=== PATIENT | female | born 1950 | race Caucasian/White ===

== ENCOUNTER 2018-07-16 09:32 | Emergency (ER) | payer MEDICARE, OTHER, SELFPAY ==
[2018-07-16 09:52] VITALS: BP 248/105; PULSE 62; RESP 22; TEMP 36.3; O2SAT 100
[2018-07-16 10:31] VITALS: BP 228/82; PULSE 56; RESP 22; O2SAT 100
[2018-07-16 10:33] VITALS: BP 207/83; PULSE 55
--- NOTE | 2018-07-16 10:34 | ED.GENADULT ---
HPI - General Adult General Chief complaint: Hypertension Stated complaint: HIGH BLOOD PRESSUE, FEELING TERRIBLE Time Seen by Provider: 07/16/18 09:59 Source: patient Mode of arrival: ambulatory Limitations: no limitations History of Present Illness HPI narrative: Patient is a 68-year-old female with a history of hypertension currently on lisinopril and atenolol who did not take her blood pressure medications this morning here for evaluation of high blood pressure. Patient states she was scheduled for cataract surgery yesterday. When she went in to have that surgery performed they took her blood pressure and she states that the systolic blood pressure was in the 240s to 260s. She states she did take her blood pressure medication yesterday. They did not perform the procedure because of this. She was asymptomatic. She did not come in to be evaluated. She states that today she woke up generally not feeling very well. She went to go take her blood pressure and the systolic blood pressure was in the 240s. She did not take her blood pressure medications this morning. She denies any chest pain or vision changes or headaches or shortness of breath or lower extremity swelling. She came into the emergency department for evaluation. Related Data Home Medications Medication Instructions Recorded Confirmed PreserVision AREDS 2 tab PO DAILY 07/16/18 07/16/18 aspirin [Aspir-Low] 81 mg PO DAILY 07/16/18 07/16/18 atenolol 100 mg PO DAILY 07/16/18 07/16/18 lisinopril 20 mg PO DAILY 07/16/18 07/16/18 ofloxacin 1 drp OPHTHALMIC (EYE) DIRECTED 07/16/18 07/16/18 prednisolone acetate 1 drp OPHTHALMIC (EYE) DIRECTED 07/16/18 07/16/18 Allergies Allergy/AdvReac Type Severity Reaction Status Date / Time Penicillins [PENICILLINS] Allergy Intermediate Verified 07/16/18 10:50 Review of Systems Constitutional Denies fever(s) and Denies headache(s) Eyes Denies blurry vision and Denies diplopia ENT Ears, Nose, Mouth, and Throat: Denies vertigo, Denies dizziness and Denies headache(s) Cardiovascular Denies chest pain and Denies dyspnea Respiratory Denies dyspnea Gastrointestinal Gastrointestinal: Denies abdominal pain, Denies nausea and Denies vomiting Musculoskeletal Denies myalgias and Denies arthralgias Integumentary/Breasts Denies rash Neurologic Denies behavioral changes, Denies vertigo, Denies dizziness and Denies headache(s) Psychiatric Reports anxiety and Denies behavioral changes Hematologic/Lymphatic Comments: Not on anticoagulation [facility] Medical History Hypertension (Acute) Surgical History No pertinent past surgical history (Acute) Social History Smoking Status: Never smoker Exam Initial Vital Signs Initial Vital Signs: Vital Signs Temperature 97.3 F L 07/16/18 09:52 Pulse Rate 62 07/16/18 09:52 Respiratory Rate 22 07/16/18 09:52 Blood Pressure 248/105 H 07/16/18 09:52 Pulse Oximetry 100 07/16/18 09:52 Const General: cooperative, healthy appearing, comfortable, well developed, well groomed and No acute distress Orientation: alert, awake and oriented x3 HENMT Head: normal to inspection and normocephalic Resp Effort & Inspection: normal respiratory effort Auscultation: clear to auscultation bilaterally Cardio Rate: regular rate Pulses: radial pulses present GI Inspection: non-distended Palpation: soft, No firm and No tender Skin Lesions: no lesions Rashes: no rashes Neuro General: alert, awake and oriented x3 Cognition: normal cognition Speech: speech normal Extrem General: normal to inspection, capillary refill normal and No edema Psych Appearance: grossly normal and well kempt Course Orders Ordered: Discontinued Medications Atenolol (Tenormin) 100 mg PO NOW ONE Stop: 07/16/18 10:46 Last Admin: 07/16/18 10:52 Dose: 100 mg Lisinopril (Zestril) 20 mg PO NOW ONE Stop: 07/16/18 10:46 Last Admin: 07/16/18 10:51 Dose: 20 mg Vital Signs - 8 hr 07/16/18 12:00 Pulse Rate 48 L Respiratory Rate 20 Blood Pressure [Right Arm] 174/99 H Pulse Oximetry 98 Medical Decision Making Lab Data Urine Dip Bedside Urine Glucose Negative Bedside Urine Bilirubin - Negative Bedside Urine Ketone - Negative Urine Specific [place] 1.015 Bedside Urine Occult Blood - Negative Bedside Urine pH 6.5 Bedside Urine Protein - Negative Bedside Urine Urobilinogen - Negative Bedside Urine Nitrite - Negative Bedside Urine Leukocytes - Negative Esterase Point of care testing: Urine Dip Bedside Urine Glucose Negative Bedside Urine Bilirubin - Negative Bedside Urine Ketone - Negative Urine Specific [place] 1.015 Bedside Urine Occult Blood - Negative Bedside Urine pH 6.5 Bedside Urine Protein - Negative Bedside Urine Urobilinogen - Negative Bedside Urine Nitrite - Negative Bedside Urine Leukocytes - Negative Esterase MDM Narrative Medical decision making narrative: Patient was asymptomatic. She was given her blood pressure medications here in the emergency department and was placed in a quiet room. Her blood pressure did come down. Given her lack of symptoms will hold on further workup for now. Will hold on changing any of her medications for now. We did discuss the importance of taking her blood pressure at home. We did discuss the importance of her continuing her blood pressure medications at home. She was given return precautions. Informed her that she needed to contact her primary care doctor for follow-up. She expressed understanding and agreement with plan. Discharge Plan Departure Patient Disposition: Home Clinical Impression: Hypertension Discharge Date/Time: 07/16/18 12:29 Interventions: ED Discharge Assessment Last Done: 07/16/18 12:28 Instructions: DI for High Blood Pressure Activity Restrictions/Additional Instructions: recommend you continue with her blood pressure medications. Take your blood pressure at home like we discussed. Call your primary care doctor for a follow-up. Return to the emergency department for any new or worsening symptoms. Prescriptions: No Action ofloxacin 0.3 % drops 1 drp ophthalmic (eye) DIRECTED RF: 0 atenolol 100 mg tablet 100 mg PO DAILY RF: 0 lisinopril 20 mg tablet 20 mg PO DAILY RF: 0 prednisolone acetate 1 % drops,suspension 1 drp ophthalmic (eye) DIRECTED RF: 0 aspirin [Aspir-Low] 81 mg Tablet,Delayed Release (Dr/Ec) 81 mg PO DAILY RF: 0 PreserVision AREDS 2 tab PO DAILY RF: 0
[2018-07-16 10:51] VITALS: BP 207/83; PULSE 63
[2018-07-16] MEDS: LISINOPRIL 20 MG TABLET PO (10:51)
[2018-07-16] MEDS: ATENOLOL 50 MG TABLET 100 MG PO (10:52)
[2018-07-16 11:20] VITALS: BP 197/106; PULSE 60; RESP 18; O2SAT 98
[2018-07-16 12:00] VITALS: BP 174/99; PULSE 48; RESP 20; O2SAT 98
== END 2018-07-16 12:29 | disposition home or self-care (01) ==
PROVIDERS: Emergency Provider Emergency Medicine; PCP Family Medicine
DX: I10 Essential (primary) hypertension (principal)
CPT/HCPCS: 36591; 81003; 93041; 99283

== ENCOUNTER 2018-11-30 07:15 | Emergency (ER) | payer MEDICARE, OTHER, SELFPAY ==
[2018-11-30 07:21] VITALS: BP 182/75; PULSE 58; RESP 20; TEMP 36.9; O2SAT 100; BMI 37.2
--- NOTE | 2018-11-30 07:37 | PC.NURSE ---
Pt reports she has been dizzy for about 20 minutes prior to arrival, denies pain. Pt is tearful and appears anxious, states that she has been having increased stress due to the loss of her daughter.
[2018-11-30 07:44] VITALS: BP 166/77; PULSE 53; RESP 15; O2SAT 100
--- NOTE | 2018-11-30 07:53 | ED_ITS ---
HPI - Dizziness General Chief Complaint: Dizziness Stated Complaint: Dizzy Time Seen by Provider: 11/30/18 07:50 Source: patient Mode of arrival: ambulatory Limitations: no limitations History of Present Illness HPI Narrative: This is a 68-year-old female comes to the emergency department complaining lightheadedness. Patient states that she has been grieving for her daughter who 3 months ago, she has also been under stress her son is returning to court in a week to try to gain custody of his daughter and he has not completed any of the tasks required for this. She states that she has also been going through the grieving process and at times has been very difficult. Patient states today she had been eating or drinking much over the last 24 hours. She states she has been sort of losing weight somewhat purposely. She states she had some yogurt and a little bit of fruit and water yesterday. She had not eaten today. She has been tired and not sleeping well. She states she ran to the store to pick something up and when she got back in her car felt lightheaded for about 5-10 minutes. She states she has had 1 episode before. This was remotely. She denies any chest pain, no shortness of breath, no headache, no nausea, no vomiting, no other GI or urinary symptoms. Patient states that she thinks most of this is related to grief but she was not sure so she came to the ER. She does have counseling she has been talking with her channel machine operator as well as with a grief counseling group. Related Data Home Medications Medication Instructions Recorded Confirmed PreserVision AREDS 2 tab PO DAILY 07/16/18 07/16/18 aspirin [Aspir-Low] 81 mg PO DAILY 07/16/18 07/16/18 atenolol 100 mg PO DAILY 07/16/18 07/16/18 lisinopril 20 mg PO DAILY 07/16/18 07/16/18 ofloxacin 1 drp OPHTHALMIC (EYE) DIRECTED 07/16/18 07/16/18 prednisolone acetate 1 drp OPHTHALMIC (EYE) DIRECTED 07/16/18 07/16/18 Allergies Allergy/AdvReac Type Severity Reaction Status Date / Time Penicillins [PENICILLINS] Allergy Intermediate Verified 11/30/18 07:21 Review of Systems Review of Systems ROS Unobtainable: All systems reviewed & are unremarkable except as noted in HPI and below Constitutional Denies chills, Denies fever(s), Denies increased appetite, Denies lethargy, Reports poor appetite and Denies weakness ENT Ears, Nose, Mouth, and Throat: Denies vertigo, Denies dizziness and Denies nasal congestion Cardiovascular Denies chest pain, Denies syncope, Denies rapid heart rate, Denies edema, Denies irregular heart rhythm, Reports lightheadedness, Denies palpitations, Denies dyspnea, Denies dyspnea on exertion and Denies orthopnea Respiratory Denies chest congestion, Denies cough, Denies excessive phlegm production, Denies dyspnea and Denies dyspnea on exertion Gastrointestinal Gastrointestinal: Denies abdominal pain, Denies change in bowel habits, Denies constipation, Denies diarrhea, Denies nausea and Denies vomiting Genitourinary Denies hematuria, Denies dysuria, Denies flank pain, Denies urinary incontinence and Denies urinary urgency Integumentary/Breasts Denies rash Neurologic Reports as per HPI, Denies vertigo, Denies dizziness, Denies syncope and Denies weakness Endocrine Denies palpitations PFSH Medical History Hypertension (Acute) Surgical History (Updated 07/16/18 @ 19:35 by Arturo Laura DO) No pertinent past surgical history (Acute) Social History Smoking Status: Never smoker Social History Smoking Status: Never smoker Exam Narrative Exam Narrative: GEN: well nourished, well appearing female, alert and oriented x 3, patient appears to be in mild distress. Patient little anxious. HEENT: Atraumatic, pupils are equal round reactive to light, extraocular movements are intact, nares are clear, TMs are clear with no fluid. Throat is clear without any exudates, erythema, tonsillar enlargement or uvular deviation HEART: Regular rate and rhythm without murmur, clicks, rubs. LUNGS:Lungs clear to auscultation, no wheezes, rales, crackles, chest moves symmetrically ABD:bowel sounds normal, soft, non-tender, no guarding, rebound, rigidity, no masses noted, no hepatosplenomegaly :No CVA tenderness MSCL: Non-tender, no muscle atrophy, muscles strength 5/5 upper and lower extremities, full range of motion, normal gait NEURO:CN 2-12 intact, sensation normal PSYCH: Grieving, anxious, denies any suicidal homicidal ideation or intent. Initial Vital Signs Initial Vital Signs: Vital Signs Temperature 98.4 F 11/30/18 07:21 Pulse Rate 58 L 11/30/18 07:21 Respiratory Rate 20 11/30/18 07:21 Blood Pressure 182/75 H 11/30/18 07:21 Pulse Oximetry 100 11/30/18 07:21 Course Orders Ordered: ED Orders 11/30/18 07:25 Complete Blood Count AUTO DIFF Stat Comprehensive Metabolic Panel Stat Troponin I Stat 11/30/18 08:10 XR chest 1V Stat Vital Signs - 8 hr 11/30/18 07:21 11/30/18 07:44 11/30/18 08:30 Temperature 98.4 F Pulse Rate 58 L 53 L 50 L Respiratory Rate 20 15 13 Blood Pressure 182/75 H Blood Pressure [Left Arm] 166/77 H 132/81 Pulse Oximetry 100 100 99 MDM - Dizziness Lab Data Attestation: I reviewed the patient's lab results. Result diagrams: 11/30/18 07:25 11/30/18 07:25 Lab Results 11/30/18 11/30/18 Range/Units 07:25 07:25 WBC 6.0 (4.5-11.0) X10^3/uL RBC 5.45 H (4.0-5.2) X10^6/uL Hgb 15.6 (12.0-16.0) g/dL Hct 46.7 H (36-46) % MCV 85.7 (80-100) fL MCH 28.7 (26-34) PG MCHC 33.5 (30-36) % RDW 15.4 H (11.6-14.8) % Plt Count 239 (150-400) X10^3/uL Neut % (Auto) 64.8 (50-75) % Lymph % (Auto) 27.3 (25-40) % [place] % (Auto) 5.4 (3-14) % Eos % (Auto) 2.0 (2-4) % Baso % (Auto) 0.5 (0-2) % Neut # (Auto) 3900 (7446-3677) /uL Lymph # (Auto) 1600 (9869-2494) /uL [place] # (Auto) 300 (0-900) /uL Eos # (Auto) 100 (0-450) /uL Baso # (Auto) 0 (0-100) /uL Sodium 140 (137-145) mmol/L Potassium 3.8 (3.4-5.1) mmol/L Chloride 103 (98-107) mmol/L Carbon Dioxide 28 (22-32) mmol/L BUN 11 (7-17) mg/dL Creatinine 0.70 (0.52-1.04) mg/dL Estimated GFR > 60.0 (>60) mL/min BUN/Creatinine Ratio 15.7 (6-22) Glucose 134 H (80-110) mg/dL Calcium 9.9 (8.4-10.2) mg/dL Total Bilirubin 1.4 H (0.2-1.3) mg/dL AST 27 (14-36) IU/L ALT 27 (9-52) IU/L Alkaline Phosphatase 110 (38-126) U/L Troponin I < 0.012 (0.01-0.034) ng/mL Total Protein 8.0 (6.3-8.2) g/dL Albumin 4.5 (3.5-5.0) g/dL Globulin 3.5 (1.7-4.1) g/dL Albumin/Globulin Ratio 1.3 (1.0-2.8) Urine Dip Bedside Urine Glucose Negative Bedside Urine Bilirubin - Negative Bedside Urine Ketone - Negative Urine Specific [place] 1.015 Bedside Urine Occult Blood - Negative Bedside Urine pH 6.5 Bedside Urine Protein - Negative Bedside Urine Urobilinogen - Negative Bedside Urine Nitrite - Negative Bedside Urine Leukocytes - Negative Esterase Imaging Data Chest x-ray: Radiologist's impression: [address] [id number] XRay Report Signed Patient: Susan Gutierrez LMR#: [id number] : 2Acct:[id number] Age/Sex: 68 / FDate of Service: 11/30/18 Loc: ED Accession Number: [id number] Procedure: XR chest 1V Ordering Provider: Lorin Weston D.O. PROCEDURE: XR CHEST 1V INDICATIONS: lightheadedness TECHNIQUE: One view of the chest was acquired. COMPARISON: [facility], , CHEST 1 VIEW, 04/12/2017, 10:19. FINDINGS: Surgical changes and devices: None. Lungs and pleura: Lungs are clear. No pleural effusions or pneumothorax. Mediastinum: Mediastinal contours appear normal. Heart size is normal. Bones and chest wall: No suspicious bony lesions. Overlying soft tissues appear unremarkable. IMPRESSION: No acute process. Dictated by: Robin Zepeda M.D. on 11/30/2018 at 8:26 Approved by: Robin Zepeda M.D. on 11/30/2018 at 8:26 ECG Data Attestation: I personally reviewed and interpreted this ECG as follows: Prior ECG tracings: available for review Interpretation: Sinus bradycardia, rate of 53, P are 184 QRS of 106 and QTC of 392. Patient has some nonspecific ST change, EKG appears similar to 04/12/2017. MDM Narrative Medical decision making narrative: Patient's lab work does not show any major abnormalities of than elevated bilirubin, patient's bilirubin was elevated in t he past. Troponin is normal, EKG does not show any acute findings. Chest x-ray is negative. patient's physical exam is benign. Patient had a long discussion she has excellent support socially from her channel machine operator as well as increasing group which she is finding very helpful. She has a pretty positive outlook and states that she is not feeling that her grief is overwhelming or that she is a danger t o herself or others. Discussed that were not finding any other medical causes of her discomfort today. She is feeling much better able to ambulate without issue and we discussed to make sure she is eating and drinking and trying to get as much sleep as possible. Discharge Plan Departure Patient Disposition: Home Clinical Impression: Dizziness Discharge Date/Time: 11/30/18 09:28 Interventions: ED Discharge Assessment Last Done: 11/30/18 09:27 Instructions: DI for Dizziness-Nonvertigo Activity Restrictions/Additional Instructions: Follow-up with your physician in the next to 3 days if you have any recurrent symptoms. Continue home medications as prescribed. Make sure that you are taking care of yourself and eating and drinking plenty. Return to the emergency department for worsening symptoms, passing out, fevers good 100.4 F, sudden severe headaches, new chest pain, shortness of breath, persistent vomiting, black or bloody stools or other new or concerning symptoms. Prescriptions: No Action ofloxacin 0.3 % drops 1 drp ophthalmic (eye) DIRECTED RF: 0 atenolol 100 mg tablet 100 mg PO DAILY RF: 0 lisinopril 20 mg tablet 20 mg PO DAILY RF: 0 prednisolone acetate 1 % drops,suspension 1 drp ophthalmic (eye) DIRECTED RF: 0 aspirin [Aspir-Low] 81 mg Tablet,Delayed Release (Dr/Ec) 81 mg PO DAILY RF: 0 PreserVision AREDS 2 tab PO DAILY RF: 0 Referrals: Arturo Jiménez MD [Primary Care Provider] -
--- NOTE | 2018-11-30 08:10 | DI.RAD.S_ITS ---
PROCEDURE: XR CHEST 1V INDICATIONS: lightheadedness TECHNIQUE: One view of the chest was acquired. COMPARISON: [facility], , CHEST 1 VIEW, 04/12/2017, 10:19. FINDINGS: Surgical changes and devices: None. Lungs and pleura: Lungs are clear. No pleural effusions or pneumothorax. Mediastinum: Mediastinal contours appear normal. Heart size is normal. Bones and chest wall: No suspicious bony lesions. Overlying soft tissues appear unremarkable. IMPRESSION: No acute process. Dictated by: Robin Zepeda M.D. on 11/30/2018 at 8:26 Approved by: Robin Zepeda M.D. on 11/30/2018 at 8:26
[2018-11-30 08:19] LABS: Add Manual Diff / Slide Review NO; Basophils Absolute Auto 0 /uL (0-100); Basophils Percent Auto 0.5 % (0-2); Eosinophils Absolute Auto 100 /uL (0-450); Hematocrit 46.7 % (36-46); Hemoglobin 15.6 g/dL (12.0-16.0); Lymphocytes Absolute Auto 1600 /uL (1100-4500); Lymphocytes Percent Auto 27.3 % (25-40); Mean Corpuscular HGB Conc 33.5 % (30-36); Mean Corpuscular Hemoglobin 28.7 PG (26-34); Mean Corpuscular Volume 85.7 fL (80-100); Monocytes Absolute Auto 300 /uL (0-900); Monocytes Percent Auto 5.4 % (3-14); Neutrophils Absolute Auto 3900 /uL (1500-7000); Neutrophils Percent Auto 64.8 % (50-75); Platelet Count 239 X10^3/uL (150-400); Red Blood Cell Count 5.45 X10^6/uL (4.0-5.2); Red Cell Distribution Width 15.4 % (11.6-14.8)
[2018-11-30 08:25] LABS: Alanine Aminotransferase 27 IU/L (9-52); Albumin 4.5 g/dL (3.5-5.0); Albumin Globulin Ratio 1.3 (1.0-2.8); Alkaline Phosphatase 110 U/L (38-126); Aspartate Aminotransferase 27 IU/L (14-36); BUN Creatinine Ratio 15.7 (6-22); Bilirubin Total 1.4 mg/dL (0.2-1.3); Blood Urea Nitrogen 11 mg/dL (7-17); Calcium 9.9 mg/dL (8.4-10.2); Carbon Dioxide 28 mmol/L (22-32); Chloride 103 mmol/L (98-107); Estimated Glomerular Filt Rate > 60.0 mL/min (>60); Globulin 3.5 g/dL (1.7-4.1); Glucose 134 mg/dL (80-110); HEMOLYSIS < 15 (0-50); Potassium 3.8 mmol/L (3.4-5.1); Sodium 140 mmol/L (137-145)
[2018-11-30 08:30] VITALS: BP 132/81; PULSE 50; RESP 13; O2SAT 99
[2018-11-30 08:36] LABS: Troponin I < 0.012 ng/mL (0.01-0.034)
[2018-11-30 09:12] VITALS: BP 136/71; PULSE 51; RESP 18; O2SAT 100
== END 2018-11-30 09:28 | disposition home or self-care (01) ==
PROVIDERS: Emergency Provider Emergency Medicine; PCP Family Medicine
DX: R42 Dizziness and giddiness (principal)
CPT/HCPCS: 36591; 71045; 80053; 81003; 84484; 85025; 93005; 93041; 99283; 99285

== ENCOUNTER 2019-05-09 01:38 | Emergency (ER) | payer MEDICARE, SELFPAY ==
[2019-05-09 01:44] VITALS: BP 201/87; PULSE 61; RESP 20; TEMP 36.5; O2SAT 94; BMI 35.4
--- NOTE | 2019-05-09 01:44 | ED.EXTPRO ---
HPI - Extremity Problem General Chief complaint: Extremity Problem,Nontraumatic Stated complaint: left leg very swollen/hot/hard Time Seen by Provider: 05/09/19 01:44 Source: patient Mode of arrival: Ambulatory Limitations: no limitations History of Present Illness HPI Narrative: This is a 68-year-old female who comes to the emergency department for complaint of swelling in her left lower extremity. Patient states she has had symptoms intermittently for months maybe even a year. She states that his been increased recently for the past week and had increasing pain. She has not noticed any redness or other skin color changes. She has not had any recent wounds or traumatic injuries. She denies any fevers. No chest pain, no shortness of breath. No nausea or vomiting. No issues with bowel movements or urination. Patient states she gets swelling in both legs but it always seems to be worse on the left. She states she has been evaluated for DVT in the past was negative. She takes baby aspirin daily, she takes atenolol, lisinopril and was started on amlodipine several weeks ago for her hypertension. Related Data Home Medications Medication Instructions Recorded Confirmed PreserVision AREDS 2 tab PO DAILY 07/16/18 07/16/18 aspirin [Aspir-Low] 81 mg PO DAILY 07/16/18 07/16/18 atenolol 100 mg PO DAILY 07/16/18 07/16/18 lisinopril 20 mg PO DAILY 07/16/18 07/16/18 ofloxacin 1 drp OPHTHALMIC (EYE) DIRECTED 07/16/18 07/16/18 prednisolone acetate 1 drp OPHTHALMIC (EYE) DIRECTED 07/16/18 07/16/18 Previous Rx's Medication Instructions Recorded furosemide [Lasix] 40 mg PO DAILY #5 tab 05/09/19 Allergies Allergy/AdvReac Type Severity Reaction Status Date / Time Penicillins [PENICILLINS] Allergy Intermediate Verified 05/09/19 01:47 Review of Systems Review of Systems ROS Unobtainable: All systems reviewed & are unremarkable except as noted in HPI and below Constitutional Constitutional: Denies chills, Denies fever(s), Denies lethargy and Denies weakness Cardiovascular Cardiovascular: Denies chest pain, Reports edema (left leg), Denies irregular heart rhythm, Denies lightheadedness, Denies palpitations, Denies dyspnea, Denies dyspnea on exertion and Denies orthopnea Respiratory Respiratory: Denies change in phlegm color, Denies chest congestion, Denies cough, Denies dyspnea, Denies dyspnea on exertion and Denies wheezing Gastrointestinal Gastrointestinal: Denies abdominal pain, Denies change in bowel habits, Denies constipation, Denies diarrhea, Denies nausea and Denies vomiting Genitourinary Genitourinary: Denies hematuria, Denies urinary frequency, Denies dysuria, Denies flank pain and Denies urinary urgency Musculoskeletal Musculoskeletal: Reports as per HPI, Denies joint swelling, Denies limited range of motion, Denies muscle cramps, Denies muscle weakness, Denies numbness and Reports tingling (occasionally) Integumentary/Breasts Skin/Breast: Denies erythema, Denies unusual bruising, Denies wounds and Denies other (pruritis) Neurologic Neurologic: Denies focal weakness, Denies numbness, Denies sensory deficit, Reports tingling (occasionally) and Denies weakness Endocrine Endocrine: Denies palpitations Allergic/Immunologic Allergic/Immunologic: Denies wheezing Patient History Surgical History No pertinent past surgical history (Acute) Social History Smoking Status: Never smoker Substance Use Type: does not use Exam Narrative Exam Narrative: GENERAL: Alert and oriented x three, obese female in mild distress HEENT: Head normocephalic, atraumatic, EOMI, pupils reactive, face symmetric, moist mucous membranes NECK: Supple, full range of motion CARDIOVASCULAR: Regular rate and rhythm without murmurs, rubs or gallops. RESPIRATORY: Breath sounds equal bilaterally, no wheezes rales or rhonchi. ABDOMEN: Soft, nontender. Normoactive bowel sounds all 4 quadrants. No guarding or rebound, rigidity, no mass : No CVA tenderness EXTREMITIES: Normal range of motion, patient has nonpitting edema and right and left lower extremities although the left lower extremity is significantly more swollen than the right. Neurovascularly intact. normal gait. NEUROLOGICAL: Cranial nerves II through XII grossly intact. Moving all extremities SKIN: Warm, dry, no petechiae, no rashes or lesions, no erythema. Initial Vital Signs Initial Vital Signs: Vital Signs Temperature 97.7 F 05/09/19 01:44 Pulse Rate 61 11/17/19 01:44 Respiratory Rate 20 05/09/19 01:44 Blood Pressure 201/87 H 05/09/19 01:44 Pulse Oximetry 94 05/09/19 01:44 Course Orders Ordered: ED Orders 05/09/19 01:55 US periph venous low extrem lt Stat 05/09/19 02:08 B Type Natriuretic Peptide Stat Complete Blood Count AUTO DIFF Stat Comprehensive Metabolic Panel Stat Vital Signs Vital signs: Vital Signs - 8 hr 05/09/19 01:44 05/09/19 02:01 05/09/19 03:10 Temperature 97.7 F Pulse Rate 61 83 Respiratory Rate 20 Blood Pressure 201/87 H Blood Pressure [Right Arm] 150/72 H 157/76 H Pulse Oximetry 94 97 MDM - Extremity (Nontraumatic) Lab Data Attestation: I reviewed the patient's lab results. Result diagrams: 05/09/19 02:08 05/09/19 02:08 Labs: Lab Results 05/09/19 05/09/19 Range/Units 02:08 02:08 WBC 7.3 (4.5-11.0) X10^3/uL RBC 4.94 (4.0-5.2) X10^6/uL Hgb 14.0 (12.0-16.0) g/dL Hct 42.3 (36-46) % MCV 85.7 (80-100) fL MCH 28.4 (26-34) PG MCHC 33.2 (30-36) % RDW 15.5 H (11.6-14.8) % Plt Count 235 (150-400) X10^3/uL Neut % (Auto) 59.4 (50-75) % Lymph % (Auto) 28.4 (25-40) % [place] % (Auto) 7.9 (3-14) % Eos % (Auto) 3.6 (2-4) % Baso % (Auto) 0.7 (0-2) % Neut # (Auto) 4300 (9264-6315) /uL Lymph # (Auto) 2100 (0299-8031) /uL [place] # (Auto) 600 (0-900) /uL Eos # (Auto) 300 (0-450) /uL Baso # (Auto) 100 (0-100) /uL Sodium 137 (137-145) mmol/L Potassium 4.5 (3.4-5.1) mmol/L Chloride 100 (98-107) mmol/L Carbon Dioxide 32 (22-32) mmol/L BUN 19 H (7-17) mg/dL Creatinine 0.90 (0.52-1.04) mg/dL Estimated GFR > 60.0 (>60) mL/min BUN/Creatinine Ratio 21.1 (6-22) Glucose 136 H (80-110) mg/dL Calcium 9.3 (8.4-10.2) mg/dL Total Bilirubin 0.7 (0.2-1.3) mg/dL AST 22 (14-36) IU/L ALT 17 (<35) IU/L Alkaline Phosphatase 133 H (38-126) U/L B-Natriuretic Peptide < 100 (<100) Total Protein 7.0 (6.3-8.2) g/dL Albumin 4.0 (3.5-5.0) g/dL Globulin 3.0 (1.7-4.1) g/dL Albumin/Globulin Ratio 1.3 (1.0-2.8) Imaging Data Venous US: My impression: . Radiologist's impression: prelim is negative MDM Narrative Medical decision making narrative: Patient's lab work does not show any major abnormalities other than alk phos is elevated 133, glucose is 136, BUN is 19 with normal electrolytes and BNP. CBC shows a normal hemoglobin with no elevation in white count. RDW is 15.5. Ultrasound is negative for DVT. Patient likely has dependent edema worsened by her amlodipine. We discussed that she can switch up and we discussed with Dr. Jiménez. Plan for compression hose, elevation and she can take try Lasix for several days. We discussed that since it is 3:00 a.m. in the maybe starting Lasix 1st thing tomorrow so she does not be up urinating all night and patient feels comfortable with this plan although she was offered a dose here. She is comfortable with the plan understands and will return if there is any other new changes or concerning signs. Discharge Plan Departure Patient Disposition: Home Clinical Impression: Swelling of lower extremity Discharge Date/Time: 05/09/19 03:12 Instructions: DI for Peripheral Edema -- Bilateral Activity Restrictions/Additional Instructions: Follow-up with her primary care physician in the next week. Call for an appointment. Discussed with your physician if amlodipine may be worsening your symptoms. I would recommend elevating your legs daily while you are sitting or resting, or if you are in bed or watching TV. You may find compression hose are helpful. You may take Lasix once daily for swelling. Your prescription was sent to [facility]. Return to the emergency department for fevers greater 100.4 F, new redness, rapidly worsening swelling, rapidly worsening pain, if you are having new chest pain, shortness of breath, lightheadedness or other new or concerning symptoms. Prescriptions: New furosemide [Lasix] 40 mg tablet 40 mg PO DAILY Qty: 5 RF: 0 No Action ofloxacin 0.3 % drops 1 drp ophthalmic (eye) DIRECTED RF: 0 atenolol 100 mg tablet 100 mg PO DAILY RF: 0 lisinopril 20 mg tablet 20 mg PO DAILY RF: 0 prednisolone acetate 1 % drops,suspension 1 drp ophthalmic (eye) DIRECTED RF: 0 aspirin [Aspir-Low] 81 mg Tablet,Delayed Release (Dr/Ec) 81 mg PO DAILY RF: 0 PreserVision AREDS 2 tab PO DAILY RF: 0 Referrals: Arturo Jiménez MD [Primary Care Provider] -
--- NOTE | 2019-05-09 01:55 | DI.US.S_ITS ---
PROCEDURE: US PERIPH VENOUS LOW EXTREM LT INDICATIONS: SWELLING LEFT LEG, INTERMITTENT SEVERAL MONTHS TECHNIQUE: Real-time imaging, as well as color and pulse Doppler interrogation, were performed of the lower extremity deep veins from the inguinal ligament to the popliteal fossa. COMPARISON: [facility], , PVE UNILATERAL LEFT, 07/28/2015, 16:52. FINDINGS: The common femoral, femoral and popliteal veins are normally compressible, and free of intraluminal thrombus. Color and pulse Doppler demonstrate normal phasic intraluminal flow. There is normal augmentation response to distal compression maneuver. IMPRESSION: No evidence of deep vein thrombosis of the left lower extremity. Note: The preliminary report provided by [facility]. is concordant with the final report. Dictated by: Siva Huynh M.D. on 05/09/2019 at 7:39 Approved by: Siva Huynh M.D. on 05/09/2019 at 7:39
[2019-05-09 02:01] VITALS: BP 150/72
[2019-05-09 02:22] LABS: Add Manual Diff / Slide Review NO; Basophils Absolute Auto 100 /uL (0-100); Basophils Percent Auto 0.7 % (0-2); Eosinophils Absolute Auto 300 /uL (0-450); Eosinophils Percent Auto 3.6 % (2-4); Hematocrit 42.3 % (36-46); Lymphocytes Absolute Auto 2100 /uL (1100-4500); Lymphocytes Percent Auto 28.4 % (25-40); Mean Corpuscular HGB Conc 33.2 % (30-36); Mean Corpuscular Hemoglobin 28.4 PG (26-34); Mean Corpuscular Volume 85.7 fL (80-100); Monocytes Absolute Auto 600 /uL (0-900); Monocytes Percent Auto 7.9 % (3-14); Neutrophils Absolute Auto 4300 /uL (1500-7000); Neutrophils Percent Auto 59.4 % (50-75); Platelet Count 235 X10^3/uL (150-400); Red Blood Cell Count 4.94 X10^6/uL (4.0-5.2); Red Cell Distribution Width 15.5 % (11.6-14.8); White Blood Cell Count 7.3 X10^3/uL (4.5-11.0)
[2019-05-09 02:33] LABS: Alanine Aminotransferase 17 IU/L (<35); Albumin Globulin Ratio 1.3 (1.0-2.8); Alkaline Phosphatase 133 U/L (38-126); Aspartate Aminotransferase 22 IU/L (14-36); BUN Creatinine Ratio 21.1 (6-22); Bilirubin Total 0.7 mg/dL (0.2-1.3); Blood Urea Nitrogen 19 mg/dL (7-17); Calcium 9.3 mg/dL (8.4-10.2); Carbon Dioxide 32 mmol/L (22-32); Chloride 100 mmol/L (98-107); Estimated Glomerular Filt Rate > 60.0 mL/min (>60); Glucose 136 mg/dL (80-110); HEMOLYSIS < 15 (0-50); Potassium 4.5 mmol/L (3.4-5.1); Sodium 137 mmol/L (137-145)
[2019-05-09 02:39] LABS: B Type Natriuretic Peptide < 100 (<100)
[2019-05-09 03:10] VITALS: BP 157/76; PULSE 83; O2SAT 97
== END 2019-05-09 03:12 | disposition home or self-care (01) ==
PROVIDERS: Emergency Provider Emergency Medicine; PCP Family Medicine
DX: R60.0 Localized edema (principal)
CPT/HCPCS: 36415; 80053; 83880; 85025; 93971; 99282; 99284

== ENCOUNTER 2022-03-11 06:56 | Emergency (ER) | payer OTHER, SELFPAY ==
[2022-03-11] VITALS (10 sets, daily range): BP systolic 111–235; BP diastolic 66–97; PULSE 60–84; RESP 20; O2SAT 93–99; BMI 38.9
--- NOTE | 2022-03-11 07:18 | ED_ITS ---
HPI - General Adult General Chief complaint: Dizziness Stated complaint: N/V Dizzy Time Seen by Provider: 03/11/22 07:00 Source: patient and EMS Mode of arrival: EMS History of Present Illness HPI narrative: Patient is a 71-year-old female who states she woke up this morning to go to the restroom and when she opened her eyes she felt like that the room was spinning. It has been continuous since then. She is never had this before. She is vomited multiple times. States when her eyes are closed and seemed to be somewhat better but every time she opens her eyes symptoms returned. She is no other associated symptoms except for the nausea and vomiting. No headache. No numbness or tingling upper lower extremities. No sore throat. No ear pain. No chest pain. No shortness of breath. No palpitations. No abdominal pain except for the nausea. No skin rashes. Has not tried anything for symptoms. Arrived by EMS Related Data Home Medications Medication Instructions Recorded Confirmed PreserVision AREDS 2 tab PO DAILY 07/16/18 07/16/18 aspirin 81 mg tablet,delayed 81 mg PO DAILY 07/16/18 07/16/18 release (Aspir-Low) atenolol 100 mg tablet 100 mg PO DAILY 07/16/18 07/16/18 lisinopril 20 mg tablet 20 mg PO DAILY 07/16/18 07/16/18 ofloxacin 0.3 % eye drops 1 drp ophthalmic (eye) DIRECTED 07/16/18 07/16/18 prednisolone acetate 1 % eye 1 drp ophthalmic (eye) DIRECTED 07/16/18 07/16/18 drops,suspension Previous Rx's Medication Instructions Recorded furosemide 40 mg tablet (Lasix) 40 mg PO DAILY #5 tabs 05/09/19 meclizine 25 mg tablet 25 mg PO BID PRN dizziness #20 tabs 03/11/22 Allergies Allergy/AdvReac Type Severity Reaction Status Date / Time Penicillins [PENICILLINS] Allergy Intermediate Verified 01/02/22 09:34 Review of Systems Review of Systems ROS Unobtainable: All systems reviewed & are unremarkable except as noted in HPI and below Patient History Medical History (Updated 03/11/22 @ 11:50 by Arturo Laura DO) Hypertension Surgical History No pertinent past surgical history Social History Smoking Status: Never smoker Smoking Status: Never smoker alcohol intake frequency: a few times a week Alcohol type: wine Substance Use Type: does not use Exam Initial Vital Signs Initial Vital Signs: Vital Signs Pulse Rate 69 03/11/22 07:01 Blood Pressure 199/92 H 03/11/22 07:01 Pulse Oximetry 98 03/11/22 07:01 Const General: cooperative and comfortable HENMT Head: normal to inspection and normocephalic Resp Effort & Inspection: normal respiratory effort Auscultation: clear to auscultation bilaterally Cardio Rate: regular rate Rhythm: regular rhythm Skin General: no rashes or lesions noted Neuro General: patient alert, patient awake, patient oriented x3 and moves all extremities Cognition: normal cognition Speech: speech normal Motor: muscle tone normal throughout Sensory Exam: no sensory deficits noted Extrem General: normal to inspection and capillary refill normal Psych Appearance: grossly normal and well kempt Course Orders Ordered: ED Orders 03/11/22 07:00 Complete Blood Count AUTO DIFF Stat Comprehensive Metabolic Panel Stat Ethanol (ETOH) Stat Lipase Stat Troponin & CK Cardiac Panel Stat 03/11/22 07:13 EKG-12 Lead Stat Discontinued Medications Diazepam (Diazepam 10 Mg/2 Ml Syringe) 2 mg IV NOW ONE Stop: 03/11/22 07:20 Last Admin: 03/11/22 07:27 Dose: 2 mg Documented By: HUEY Haloperidol (Haloperidol 5 Mg/Ml Vial) 2.5 mg IV NOW ONE Stop: 03/11/22 08:16 Last Admin: 03/11/22 08:30 Dose: 2.5 mg Documented By: HUEY Sodium Chloride (Normal Saline 0.9%) 1,000 mls @ 500 mls/hr IV BOLUS ONE Stop: 03/11/22 09:11 Last Infusion: 03/11/22 08:31 Dose: 0 mls/hr Documented By: Infusion: 03/11/22 08:31 Dose: 500 mls/hr Documented By: Admin: 03/11/22 07:28 Dose: 500 mls/hr Documented By: HUEY Ondansetron HCl (Ondansetron 4 Mg/2 Ml Inj) 4 mg IV NOW ONE Stop: 03/11/22 07:20 Last Admin: 03/11/22 07:27 Dose: 4 mg Documented By: HUEY Ondansetron HCl (Ondansetron 4 Mg/2 Ml Inj) 4 mg IV NOW ONE Stop: 03/11/22 07:54 Last Admin: 03/11/22 07:55 Dose: 4 mg Documented By: RENARD Vital Signs Vital signs: Vital Signs - 8 hr 03/11/22 07:04 03/11/22 07:01 03/11/22 07:01 Pulse Rate 69 69 Respiratory Rate 20 Blood Pressure 199/92 H 199/92 H Pulse Oximetry 98 98 Oxygen Delivery Method Room Air 03/11/22 07:30 03/11/22 07:31 03/11/22 07:31 Pulse Rate 60 62 Respiratory Rate Blood Pressure 174/88 H Pulse Oximetry 98 99 Oxygen Delivery Method 03/11/22 08:00 03/11/22 08:01 03/11/22 08:01 Pulse Rate 71 67 Respiratory Rate Blood Pressure 235/97 H Pulse Oximetry 98 98 Oxygen Delivery Method 03/11/22 08:04 03/11/22 08:04 03/11/22 10:34 Pulse Rate 66 Respiratory Rate Blood Pressure 202/95 H 152/94 H Pulse Oximetry 98 Oxygen Delivery Method 03/11/22 10:34 03/11/22 11:00 03/11/22 11:00 Pulse Rate 84 72 Respiratory Rate Blood Pressure 135/74 Pulse Oximetry 97 94 Oxygen Delivery Method 03/11/22 11:30 03/11/22 11:30 Pulse Rate 74 Respiratory Rate Blood Pressure 111/66 Pulse Oximetry 93 Oxygen Delivery Method Medical Decision Making Lab Data Lab results reviewed: Yes I reviewed the patient's lab results. Result diagrams: 03/11/22 07:00 03/11/22 07:00 Labs: Lab Results 03/11/22 03/11/22 Range/Units 07:00 07:00 WBC 7.1 (4.5-11.0) X10^3/uL RBC 5.06 (4.0-5.2) X10^6/uL Hgb 14.5 (12.0-16.0) g/dL Hct 43.9 (36-46) % MCV 86.7 (80-100) fL MCH 28.7 (26-34) PG MCHC 33.0 (30-36) % RDW 15.4 H (11.6-14.8) % Plt Count 201 (150-400) X10^3/uL Neut % (Auto) 38.4 L (50-75) % Lymph % (Auto) 50.4 H (25-40) % [place] % (Auto) 6.9 (3-14) % Eos % (Auto) 3.6 (2-4) % Baso % (Auto) 0.7 (0-2) % Neut # (Auto) 2700 (8374-1866) /uL Lymph # (Auto) 3600 (5704-3629) /uL [place] # (Auto) 500 (0-900) /uL Eos # (Auto) 300 (0-450) /uL Baso # (Auto) 100 (0-100) /uL Sodium 141 (137-145) mmol/L Potassium 3.9 (3.4-5.1) mmol/L Chloride 105 (98-107) mmol/L Carbon Dioxide 26 (22-32) mmol/L BUN 16 (7-17) mg/dL Creatinine 0.68 (0.52-1.04) mg/dL Estimated GFR > 60 (>60) mL/min BUN/Creatinine Ratio 23.5 H (6-22) Glucose 119 H (80-110) mg/dL Calcium 9.3 (8.4-10.2) mg/dL Total Bilirubin 0.8 (0.2-1.3) mg/dL AST 27 (14-36) IU/L ALT 19 (<35) IU/L Alkaline Phosphatase 132 H (38-126) U/L Total Creatine Kinase 31 (30-135) U/L CK-MB (CK-2) TNP CK-MB (CK-2) Rel Index TNP Troponin I < 0.012 (0.01-0.034) ng/mL Total Protein 7.7 (6.3-8.2) g/dL Albumin 4.1 (3.5-5.0) g/dL Globulin 3.6 (1.7-4.1) g/dL Albumin/Globulin Ratio 1.1 (1.0-2.8) Lipase 127 (23-300) U/L Ethyl Alcohol < 10 ( - 10) mg/dL ECG Data Attestation: I personally reviewed and interpreted this ECG as follows: Interpretation: Sinus rhythm Ventricular rate is 64 Normal axis LVH No ST T wave changes MDM Narrative Medical decision making narrative: Initially had a difficult time controlling the patient's symptoms however after Haldol the patient slept for an extended period of time and woke up and felt m uch better. She did admit to nursing staff that she does smoke marijuana on a daily basis but also vapes marijuana. She did do this last evening. Given her presentation today I have low suspicion for central process. Her symptoms were reproducible and positional. Feel that we can hold on any radiologic studies for now. Will discharge home with prescription for meclizine. Patient was asking to be discharged home. She was given return precautions. Discharge Plan Departure Patient Disposition: Home Clinical Impression: Vertigo Instructions: DI for Vertigo Activity Restrictions/Additional Instructions: I do recommend that you contact your primary doctor for follow-up. Continue to take all of your medications as directed. I did send a prescription for medicine called meclizine to [facility]. This is an as-needed medicine that could potentially help with vertigo in the future. Return to the emergency department for any new or worsening symptoms. Prescriptions: New meclizine 25 mg tablet 25 mg PO BID PRN (Reason: dizziness) Qty: 20 0RF No Action ofloxacin 0.3 % drops 1 drp ophthalmic (eye) DIRECTED Label Comments: not started yet-- post op meds atenolol 100 mg tablet 100 mg PO DAILY lisinopril 20 mg tablet 20 mg PO DAILY prednisolone acetate 1 % drops,suspension 1 drp ophthalmic (eye) DIRECTED Label Comments: not using yet. scheduled post op aspirin [Aspir-Low] 81 mg Tablet,Delayed Release (Dr/Ec) 81 mg PO DAILY PreserVision AREDS 2 tab PO DAILY furosemide [Lasix] 40 mg tablet 40 mg PO DAILY Qty: 5 0RF Referrals: Arturo Jiménez MD [Primary Care Provider] - Visit Report Forms: Patient Portal/API
[2022-03-11 07:24] LABS: Add Manual Diff / Slide Review NO; Basophils Absolute Auto 100 /uL (0-100); Basophils Percent Auto 0.7 % (0-2); Eosinophils Absolute Auto 300 /uL (0-450); Eosinophils Percent Auto 3.6 % (2-4); Hematocrit 43.9 % (36-46); Hemoglobin 14.5 g/dL (12.0-16.0); Lymphocytes Absolute Auto 3600 /uL (1100-4500); Lymphocytes Percent Auto 50.4 % (25-40); Mean Corpuscular Hemoglobin 28.7 PG (26-34); Mean Corpuscular Volume 86.7 fL (80-100); Monocytes Absolute Auto 500 /uL (0-900); Monocytes Percent Auto 6.9 % (3-14); Neutrophils Absolute Auto 2700 /uL (1500-7000); Neutrophils Percent Auto 38.4 % (50-75); Platelet Count 201 X10^3/uL (150-400); Red Blood Cell Count 5.06 X10^6/uL (4.0-5.2); Red Cell Distribution Width 15.4 % (11.6-14.8); White Blood Cell Count 7.1 X10^3/uL (4.5-11.0)
[2022-03-11] MEDS: ONDANSETRON 4 MG/2 ML INJ IV ×2 (07:27→07:55)
[2022-03-11] MEDS: diazePAM 10 MG/2 ML SYRINGE 2 MG IV (07:27)
[2022-03-11] MEDS: SODIUM CHLORIDE 0.9% 1,000 ML 500 ML IV (07:28)
[2022-03-11 07:42] LABS: Alanine Aminotransferase 19 IU/L (<35); Albumin 4.1 g/dL (3.5-5.0); Albumin Globulin Ratio 1.1 (1.0-2.8); Alkaline Phosphatase 132 U/L (38-126); Aspartate Aminotransferase 27 IU/L (14-36); BUN Creatinine Ratio 23.5 (6-22); Bilirubin Total 0.8 mg/dL (0.2-1.3); Blood Urea Nitrogen 16 mg/dL (7-17); Calcium 9.3 mg/dL (8.4-10.2); Carbon Dioxide 26 mmol/L (22-32); Chloride 105 mmol/L (98-107); Creatine Kinase 31 U/L (30-135); Estimated Glomerular Filt Rate > 60 mL/min (>60); Ethanol (ETOH) < 10 mg/dL; Globulin 3.6 g/dL (1.7-4.1); Glucose 119 mg/dL (80-110); HEMOLYSIS 29 (0-50); Lipase 127 U/L (23-300); Potassium 3.9 mmol/L (3.4-5.1); Sodium 141 mmol/L (137-145); Total Protein 7.7 g/dL (6.3-8.2)
[2022-03-11 07:53] LABS: Troponin I < 0.012 ng/mL (0.01-0.034)
[2022-03-11] MEDS: HALOPERIDOL 5 MG/ML VIAL 2.5 MG IV (08:30)
--- NOTE | 2022-03-11 11:52 | PC.NURSE ---
Patient up to bedside commode. Reports feeling significantly better. Denies Dizziness. when can I go home Dr Laura notified of patients improvement. Patient calling son for ride
== END 2022-03-11 12:15 | disposition home or self-care (01) ==
PROVIDERS: Emergency Provider Emergency Medicine; PCP Family Medicine
DX: R42 Dizziness and giddiness (principal); R11.2 Nausea with vomiting, unspecified; R07.9 Chest pain, unspecified
CPT/HCPCS: 36415; 80053; 80320; 82550; 83690; 84484; 85025; 93005; 93010; 96361; 96374; 96375; 99284; J1630; J2405; J3360

== ENCOUNTER 2022-03-14 13:34 | Observation (INO) | payer OTHER, SELFPAY ==
[2022-03-14] VITALS (27 sets, daily range): BP systolic 125–249; BP diastolic 66–109; PULSE 50–66; RESP 14–24; TEMP 36–37; O2SAT 91–99; BMI 33.2
--- NOTE | 2022-03-14 13:56 | ED.DIZZY ---
HPI - Dizziness <SANDY Almanza - Last Filed: 03/14/22 20:15> General Chief Complaint: Dizziness Stated Complaint: Vertigo/Nausea Time Seen by Provider: 03/14/22 13:42 Source: patient Mode of arrival: Ambulatory History of Present Illness HPI Narrative: This is a 71-year-old female presents to the emergency department via EMS 3 days after she was seen in the emergency department for vertigo. She states that her symptoms had improved when he had gone home and today she did not take her blood pressure medicine but she went to the store, states that there was a heater over the check stand and she started to feel hot and nauseated, then states that she drank some water and needed to sit down. She states the dizziness came on all of a sudden, was associated with nausea but she denies any chest pain, chest pressure, shortness of breath, weakness, incontinence, or any other sensation. She does endorse that she has used marijuana recently for pain and tried something new yesterday called dabbing and states that she fell asleep really quickly and woke up with a dry mouth, states that she did not take her blood pressure medicines today and presents to the emergency department today by ambulance after receiving 8 of Zofran for nausea and vomiting with a blood pressure of 224/104, heart rate of 64. She denies any shortness of breath or vision changes, denies any neck pain. Patient states that she had an allergy at 22 years of age to penicillin, states that she took penicillin almost yearly as a child for strep throat. She denies history of allergies to any other antibiotics. Related Data Home Medications Medication Instructions Recorded Confirmed atenolol 100 mg tablet 100 mg PO DAILY 07/16/18 03/14/22 amlodipine 5 mg tablet 5 mg PO DAILY 03/14/22 03/14/22 escitalopram oxalate 10 mg tablet 10 mg PO DAILY 03/14/22 03/14/22 (Lexapro) lisinopril 20 mg tablet 40 mg PO DAILY 03/14/22 03/14/22 Allergies Allergy/AdvReac Type Severity Reaction Status Date / Time Penicillins [PENICILLINS] Allergy Intermediate Verified 01/02/22 09:34 Review of Systems <SANDY Almanza - Last Filed: 03/14/22 20:15> Review of Systems Narrative: Review of systems is negative for acute abnormalities unless otherwise noted in HPI Patient History <SANDY Almanza - Last Filed: 03/14/22 20:15> Medical History (Updated 03/14/22 @ 19:53 by SANDY Almanza) Hypertension Surgical History No pertinent past surgical history Social History household members: family Smoking Status: Never smoker Smoking Status: Never smoker alcohol intake frequency: a few times a week Alcohol type: wine Substance Use Type: does not use Exam <SANDY Almanza - Last Filed: 03/14/22 20:15> Narrative Exam Narrative: Reviewed vitals signs and nursing notes. General: cooperative, uncomfortable initially and later became more comfortable, vomiting frequently, appears tired and becomes nauseated if her eyes are open with stimulation in the room. HEENT: symmetrical facial expressions, moist mucous membranes, without nystagmus, EOMI, Cardiovascular: regular rate and rhythm, no peripheral edema, warm extremities Respiratory: normal effort, able to speak in complete sentences, without wheezing, stridor, or abnormal breath sounds. No retractions or tachypnea. GI: abdomen soft, mild tenderness to palpation in the right upper quadrant, nondistended, without masses, rebound tenderness or exquisite tenderness with exam. MSK: moves all extremities, neurovascularly intact, no weakness, normal tone Skin: brisk capillary refill, without pallor or erythema Neuro: normal speech and cognition, A&O x3, ambulatory, clear speech Psych: mental status is grossly normal, congruent mood, normal affect, pleasant and cooperative Initial Vital Signs Initial Vital Signs: Vital Signs Temperature 98.6 F 03/14/22 13:35 Pulse Rate 64 03/14/22 13:35 Respiratory Rate 18 03/14/22 13:35 Blood Pressure 224/104 H 03/14/22 13:35 Pulse Oximetry 99 03/14/22 13:35 Oxygen Delivery Method 03/14/22 13:35 <Parker Gonzalez MD - Last Filed: 03/15/22 07:06> Initial Vital Signs Initial Vital Signs: Vital Signs Temperature 98.6 F 03/14/22 13:35 Pulse Rate 64 03/14/22 13:35 Respiratory Rate 18 03/14/22 13:35 Blood Pressure 224/104 H 03/14/22 13:35 Pulse Oximetry 99 03/14/22 13:35 Oxygen Delivery Method 03/14/22 13:35 Course <SANDY Almanza - Last Filed: 03/14/22 20:15> Orders Ordered: Acetaminophen (Acetaminophen 325 Mg Tablet) 650 mg PO Q6HR PRN PRN Reason: Fever/Mild Pain (1-3) Amlodipine Besylate (Amlodipine 5 Mg Tablet) 10 mg PO DAILY [facility] Atenolol (Atenolol 50 Mg Tablet) 100 mg PO DAILY [facility] Calcium Carbonate (Calcium Carbonate 500 Mg Tab) 1,000 mg PO Q4HR PRN PRN Reason: Dyspepsia Docusate Sodium (Docusate 100 Mg Capsule) 100 mg PO BID [facility] Last Admin: 03/14/22 21:45 Dose: Not Given Documented By: CONI Enoxaparin Sodium (Enoxaparin 40 Mg/0.4 Ml Syringe) 40 mg SUBCUT DAILY [facility] Escitalopram Oxalate (Escitalopram 10 Mg Tablet) 10 mg PO DAILY [facility] Hydralazine HCl (Hydralazine 20 Mg/Ml Vial) 10 mg IV Q6HR PRN PRN Reason: Hypertension SBP > 180 Lisinopril (Lisinopril 20 Mg Tablet) 40 mg PO DAILY [facility] Lorazepam (Lorazepam 2 Mg/Ml Inj) 1 mg IV Q6HR PRN PRN Reason: Anxiety Discontinued Medications Amlodipine Besylate (Amlodipine 5 Mg Tablet) 5 mg PO NOW ONE Stop: 03/14/22 13:54 Last Admin: 03/14/22 14:03 Dose: 5 mg Documented By: RENARD Atenolol (Atenolol 50 Mg Tablet) 100 mg PO NOW ONE Stop: 03/14/22 13:49 Last Admin: 03/14/22 14:08 Dose: 100 mg Documented By: RENARD Diazepam (Diazepam 10 Mg/2 Ml Syringe) 2 mg IV NOW ONE Stop: 03/14/22 14:01 Last Admin: 03/14/22 14:11 Dose: 2 mg Documented By: RENARD Diazepam (Diazepam 10 Mg/2 Ml Syringe) 2 mg IV NOW ONE Stop: 03/14/22 15:33 Last Admin: 03/14/22 15:46 Dose: 2 mg Documented By: KATELYNN Diphenhydramine HCl (Diphenhydramine 50 Mg/Ml Vial) 25 mg IV NOW ONE Stop: 03/14/22 16:55 Last Admin: 03/14/22 17:09 Dose: 25 mg Documented By: KATELYNN Fosfomycin Tromethamine (Fosfomycin 3 Gm Packet) 3 gm PO NOW ONE Stop: 03/14/22 15:29 Last Admin: 03/14/22 16:58 Dose: Not Given Documented By: RENARD Hydralazine HCl (Hydralazine 20 Mg/Ml Vial) 10 mg IV Q6HR PRN PRN Reason: Hypertension Last Admin: 03/14/22 17:10 Dose: 10 mg Documented By: KATELYNN Hydrochlorothiazide (Hydrochlorothiazide 25 Mg Tablet) 25 mg PO NOW ONE Stop: 03/14/22 19:50 Last Admin: 03/14/22 20:37 Dose: Not Given Documented By: CONI Lactated Ringer's (Lactated Ringers) 1,000 mls @ 1,000 mls/hr IV BOLUS ONE Stop: 03/14/22 14:47 Last Admin: 03/14/22 13:58 Dose: Not Given Documented By: RENARD Lactated Ringer's (Lactated Ringers) 500 mls @ 1,000 mls/hr IV BOLUS ONE Stop: 03/14/22 14:17 Last Infusion: 03/14/22 14:55 Dose: 0 mls/hr Documented By: Admin: 03/14/22 14:04 Dose: 1,000 mls/hr Documented By: RENARD Ceftriaxone Sodium 1,000 mg/ (Sodium Chloride) 100 mls @ 200 mls/hr IV NOW ONE Stop: 03/14/22 16:55 Last Infusion: 03/14/22 17:42 Dose: 0 mls/hr Documented By: RENARD(2) Admin: 03/14/22 17:11 Dose: 200 mls/hr Documented By: KATELYNN Ketorolac Tromethamine (Ketorolac 30 Mg/Ml Vial) 15 mg IV NOW ONE Stop: 03/14/22 15:33 Last Admin: 03/14/22 15:46 Dose: 15 mg Documented By: KATELYNN Lisinopril (Lisinopril 20 Mg Tablet) 5 mg PO NOW ONE Stop: 03/14/22 13:49 Last Admin: 03/14/22 14:08 Dose: 5 mg Documented By: RENARD Meclizine HCl (Meclizine Hcl 12.5 Mg Tablet) 25 mg PO NOW ONE Stop: 03/14/22 13:55 Last Admin: 03/14/22 14:03 Dose: 25 mg Documented By: RENARD Metoclopramide HCl (Metoclopramide 10 Mg/2 Ml Inj) 10 mg IV NOW ONE Stop: 03/14/22 15:33 Last Admin: 03/14/22 15:46 Dose: 10 mg Documented By: KATELYNN Promethazine HCl (Promethazine 25 Mg Tablet) 12.5 mg PO NOW ONE Stop: 03/14/22 16:09 Last Admin: 03/14/22 16:27 Dose: 12.5 mg Documented By: KATELYNN Reevaluation(s) Reevaluation #1: Patient states that she still feels nauseated after Zofran and is requesting another antiemetic, she was given Valium, IV fluids are running Reevaluation #2: Patient is vomiting again, she is status post 2 doses of Valium, was given Reglan, UA is positive for bacteria Reevaluation #3: Recheck patient after p.o. Phenergan on other medications, she states that she is finally no longer dizzy and feels better, she also endorses not feeling nauseated at this time and has not vomited for about 1 hour. She remains hypertensive after 10 mg of hydralazine IV, she also has received all of her p.m. home medications for hypertension. Call Dr. Tyler for admission, reviewed case with him and he accepts for hypertensive urgency with end-organ dysfunction. Vital Signs Vital signs: Vital Signs - 8 hr 03/14/22 13:35 03/14/22 13:41 03/14/22 14:00 Temperature 98.6 F Pulse Rate 64 66 60 Respiratory Rate 18 16 14 Blood Pressure 224/104 H Pulse Oximetry 99 98 98 Oxygen Delivery Method Room Air 03/14/22 14:01 03/14/22 14:01 03/14/22 14:46 Temperature Pulse Rate 60 60 Respiratory Rate 16 19 Blood Pressure 218/95 H Pulse Oximetry 99 95 Oxygen Delivery Method 03/14/22 15:00 03/14/22 15:05 03/14/22 15:05 Temperature Pulse Rate 55 L 55 L Respiratory Rate 18 18 Blood Pressure 224/98 H Pulse Oximetry 95 98 Oxygen Delivery Method 03/14/22 15:30 03/14/22 15:31 03/14/22 15:31 Temperature Pulse Rate 58 L 55 L Respiratory Rate 17 15 Blood Pressure 249/109 H Pulse Oximetry Oxygen Delivery Method 03/14/22 15:36 03/14/22 15:36 03/14/22 16:00 Temperature Pulse Rate 53 L 56 L Respiratory Rate 24 23 Blood Pressure 225/102 H Pulse Oximetry 98 91 Oxygen Delivery Method 03/14/22 16:01 03/14/22 16:01 03/14/22 16:08 Temperature Pulse Rate 51 L 53 L Respiratory Rate 22 Blood Pressure 227/102 H Pulse Oximetry 98 97 Oxygen Delivery Method 03/14/22 16:08 03/14/22 16:30 03/14/22 16:30 Temperature Pulse Rate 53 L Respiratory Rate 17 Blood Pressure 208/100 H 222/100 H Pulse Oximetry 97 Oxygen Delivery Method 03/14/22 17:10 03/14/22 16:57 03/14/22 16:57 Temperature Pulse Rate 52 L 56 L Respiratory Rate Blood Pressure 208/101 H 224/94 H Pulse Oximetry 97 Oxygen Delivery Method 03/14/22 17:00 03/14/22 17:01 03/14/22 17:01 Temperature Pulse Rate 53 L 52 L Respiratory Rate Blood Pressure 208/101 H Pulse Oximetry 98 98 Oxygen Delivery Method <Parker Gonzalez MD - Last Filed: 03/15/22 07:06> Orders Ordered: Acetaminophen (Acetaminophen 325 Mg Tablet) 650 mg PO Q6HR PRN PRN Reason: Fever/Mild Pain (1-3) Amlodipine Besylate (Amlodipine 5 Mg Tablet) 10 mg PO DAILY [facility] Atenolol (Atenolol 50 Mg Tablet) 100 mg PO DAILY [facility] Calcium Carbonate (Calcium Carbonate 500 Mg Tab) 1,000 mg PO Q4HR PRN PRN Reason: Dyspepsia Docusate Sodium (Docusate 100 Mg Capsule) 100 mg PO BID [facility] Last Admin: 03/14/22 21:45 Dose: Not Given Documented By: CONI Enoxaparin Sodium (Enoxaparin 40 Mg/0.4 Ml Syringe) 40 mg SUBCUT DAILY [facility] Escitalopram Oxalate (Escitalopram 10 Mg Tablet) 10 mg PO DAILY [facility] Hydralazine HCl (Hydralazine 20 Mg/Ml Vial) 10 mg IV Q6HR PRN PRN Reason: Hypertension SBP > 180 Lisinopril (Lisinopril 20 Mg Tablet) 40 mg PO DAILY [facility] Lorazepam (Lorazepam 2 Mg/Ml Inj) 1 mg IV Q6HR PRN PRN Reason: Anxiety Discontinued Medications Amlodipine Besylate (Amlodipine 5 Mg Tablet) 5 mg PO NOW ONE Stop: 03/14/22 13:54 Last Admin: 03/14/22 14:03 Dose: 5 mg Documented By: RENARD Atenolol (Atenolol 50 Mg Tablet) 100 mg PO NOW ONE Stop: 03/14/22 13:49 Last Admin: 03/14/22 14:08 Dose: 100 mg Documented By: RENARD Diazepam (Diazepam 10 Mg/2 Ml Syringe) 2 mg IV NOW ONE Stop: 03/14/22 14:01 Last Admin: 03/14/22 14:11 Dose: 2 mg Documented By: RENARD Diazepam (Diazepam 10 Mg/2 Ml Syringe) 2 mg IV NOW ONE Stop: 03/14/22 15:33 Last Admin: 03/14/22 15:46 Dose: 2 mg Documented By: KATELYNN Diphenhydramine HCl (Diphenhydramine 50 Mg/Ml Vial) 25 mg IV NOW ONE Stop: 03/14/22 16:55 Last Admin: 03/14/22 17:09 Dose: 25 mg Documented By: KATELYNN Fosfomycin Tromethamine (Fosfomycin 3 Gm Packet) 3 gm PO NOW ONE Stop: 03/14/22 15:29 Last Admin: 03/14/22 16:58 Dose: Not Given Documented By: RENARD Hydralazine HCl (Hydralazine 20 Mg/Ml Vial) 10 mg IV Q6HR PRN PRN Reason: Hypertension Last Admin: 03/14/22 17:10 Dose: 10 mg Documented By: KATELYNN Hydrochlorothiazide (Hydrochlorothiazide 25 Mg Tablet) 25 mg PO NOW ONE Stop: 03/14/22 19:50 Last Admin: 03/14/22 20:37 Dose: Not Given Documented By: CONI Lactated Ringer's (Lactated Ringers) 1,000 mls @ 1,000 mls/hr IV BOLUS ONE Stop: 03/14/22 14:47 Last Admin: 03/14/22 13:58 Dose: Not Given Documented By: RENARD Lactated Ringer's (Lactated Ringers) 500 mls @ 1,000 mls/hr IV BOLUS ONE Stop: 03/14/22 14:17 Last Infusion: 03/14/22 14:55 Dose: 0 mls/hr Documented By: Admin: 03/14/22 14:04 Dose: 1,000 mls/hr Documented By: RENARD Ceftriaxone Sodium 1,000 mg/ (Sodium Chloride) 100 mls @ 200 mls/hr IV NOW ONE Stop: 03/14/22 16:55 Last Infusion: 03/14/22 17:42 Dose: 0 mls/hr Documented By: RENARD(2) Admin: 03/14/22 17:11 Dose: 200 mls/hr Documented By: KATELYNN Ketorolac Tromethamine (Ketorolac 30 Mg/Ml Vial) 15 mg IV NOW ONE Stop: 03/14/22 15:33 Last Admin: 03/14/22 15:46 Dose: 15 mg Documented By: KATELYNN Lisinopril (Lisinopril 20 Mg Tablet) 5 mg PO NOW ONE Stop: 03/14/22 13:49 Last Admin: 03/14/22 14:08 Dose: 5 mg Documented By: RENARD Meclizine HCl (Meclizine Hcl 12.5 Mg Tablet) 25 mg PO NOW ONE Stop: 03/14/22 13:55 Last Admin: 03/14/22 14:03 Dose: 25 mg Documented By: RENARD Metoclopramide HCl (Metoclopramide 10 Mg/2 Ml Inj) 10 mg IV NOW ONE Stop: 03/14/22 15:33 Last Admin: 03/14/22 15:46 Dose: 10 mg Documented By: KATELYNN Promethazine HCl (Promethazine 25 Mg Tablet) 12.5 mg PO NOW ONE Stop: 03/14/22 16:09 Last Admin: 03/14/22 16:27 Dose: 12.5 mg Documented By: KATELYNN Vital Signs Vital signs: Vital Signs - 8 hr 03/14/22 13:35 03/14/22 13:41 03/14/22 14:00 Temperature 98.6 F Pulse Rate 64 66 60 Respiratory Rate 18 16 14 Blood Pressure 224/104 H Pulse Oximetry 99 98 98 Oxygen Delivery Method Room Air 03/14/22 14:01 03/14/22 14:01 03/14/22 14:46 Temperature Pulse Rate 60 60 Respiratory Rate 16 19 Blood Pressure 218/95 H Pulse Oximetry 99 95 Oxygen Delivery Method 03/14/22 15:00 03/14/22 15:05 03/14/22 15:05 Temperature Pulse Rate 55 L 55 L Respiratory Rate 18 18 Blood Pressure 224/98 H Pulse Oximetry 95 98 Oxygen Delivery Method 03/14/22 15:30 03/14/22 15:31 03/14/22 15:31 Temperature Pulse Rate 58 L 55 L Respiratory Rate 17 15 Blood Pressure 249/109 H Pulse Oximetry Oxygen Delivery Method 03/14/22 15:36 03/14/22 15:36 03/14/22 16:00 Temperature Pulse Rate 53 L 56 L Respiratory Rate 24 23 Blood Pressure 225/102 H Pulse Oximetry 98 91 Oxygen Delivery Method 03/14/22 16:01 03/14/22 16:01 03/14/22 16:08 Temperature Pulse Rate 51 L 53 L Respiratory Rate 22 Blood Pressure 227/102 H Pulse Oximetry 98 97 Oxygen Delivery Method 03/14/22 16:08 03/14/22 16:30 03/14/22 16:30 Temperature Pulse Rate 53 L Respiratory Rate 17 Blood Pressure 208/100 H 222/100 H Pulse Oximetry 97 Oxygen Delivery Method 03/14/22 17:10 03/14/22 16:57 03/14/22 16:57 Temperature Pulse Rate 52 L 56 L Respiratory Rate Blood Pressure 208/101 H 224/94 H Pulse Oximetry 97 Oxygen Delivery Method 03/14/22 17:00 03/14/22 17:01 03/14/22 17:01 Temperature Pulse Rate 53 L 52 L Respiratory Rate Blood Pressure 208/101 H Pulse Oximetry 98 98 Oxygen Delivery Method MDM - Dizziness <SANDY Almanza - Last Filed: 03/14/22 20:15> Lab Data Result diagrams: 03/15/22 05:02 03/15/22 05:02 Labs: Lab Results 03/14/22 03/14/22 03/14/22 Range/Units 13:45 13:45 13:45 WBC 7.8 (4.5-11.0) X10^3/uL RBC 5.27 H (4.0-5.2) X10^6/uL Hgb 14.9 (12.0-16.0) g/dL Hct 45.4 (36-46) % MCV 86.1 (80-100) fL MCH 28.3 (26-34) PG MCHC 32.9 (30-36) % RDW 15.2 H (11.6-14.8) % Plt Count 234 (150-400) X10^3/uL Neut % (Auto) 54.4 (50-75) % Lymph % (Auto) 35.5 (25-40) % Wallace % (Auto) 7.0 (3-14) % Eos % (Auto) 2.7 (2-4) % Baso % (Auto) 0.4 (0-2) % Neut # (Auto) 4200 (1336-5654) /uL Lymph # (Auto) 2800 (7274-3807) /uL Wallace # (Auto) 500 (0-900) /uL Eos # (Auto) 200 (0-450) /uL Baso # (Auto) 0 (0-100) /uL Sodium 135 L (137-145) mmol/L Potassium 3.8 (3.4-5.1) mmol/L Chloride 102 (98-107) mmol/L Carbon Dioxide 27 (22-32) mmol/L BUN 13 (7-17) mg/dL Creatinine 0.74 (0.52-1.04) mg/dL Estimated GFR > 60 (>60) mL/min BUN/Creatinine Ratio 17.6 (6-22) Glucose 94 (80-110) mg/dL Lactate 1.7 (0.7-2.1) mmol/L Calcium 9.6 (8.4-10.2) mg/dL Magnesium (1.6-2.3) mg/dL Total Bilirubin 2.0 H (0.2-1.3) mg/dL AST 29 (14-36) IU/L ALT 24 (<35) IU/L Alkaline Phosphatase 134 H (38-126) U/L Total Creatine Kinase (30-135) U/L CK-MB (CK-2) CK-MB (CK-2) Rel Index Troponin I < 0.012 (0.01-0.034) ng/mL NT-Pro-B Natriuret Pep (<125) pg/mL Total Protein 8.3 H (6.3-8.2) g/dL Albumin 4.3 (3.5-5.0) g/dL Globulin 4.0 (1.7-4.1) g/dL Albumin/Globulin Ratio 1.1 (1.0-2.8) Urine RBC (0-5/HPF) Urine WBC (0-5/HPF) Ur Squamous Epith Cells (0-5/HPF) Amorphous Sediment Urine Bacteria (None) Ur Culture Indicated? 03/14/22 03/14/22 03/14/22 Range/Units 13:45 13:45 14:45 WBC (4.5-11.0) X10^3/uL RBC (4.0-5.2) X10^6/uL Hgb (12.0-16.0) g/dL Hct (36-46) % MCV (80-100) fL MCH (26-34) PG MCHC (30-36) % RDW (11.6-14.8) % Plt Count (150-400) X10^3/uL Neut % (Auto) (50-75) % Lymph % (Auto) (25-40) % Wallace % (Auto) (3-14) % Eos % (Auto) (2-4) % Baso % (Auto) (0-2) % Neut # (Auto) (8083-2103) /uL Lymph # (Auto) (9683-0142) /uL Wallace # (Auto) (0-900) /uL Eos # (Auto) (0-450) /uL Baso # (Auto) (0-100) /uL Sodium (137-145) mmol/L Potassium (3.4-5.1) mmol/L Chloride (98-107) mmol/L Carbon Dioxide (22-32) mmol/L BUN (7-17) mg/dL Creatinine (0.52-1.04) mg/dL Estimated GFR (>60) mL/min BUN/Creatinine Ratio (6-22) Glucose (80-110) mg/dL Lactate (0.7-2.1) mmol/L Calcium (8.4-10.2) mg/dL Magnesium 1.8 (1.6-2.3) mg/dL Total Bilirubin (0.2-1.3) mg/dL AST (14-36) IU/L ALT (<35) IU/L Alkaline Phosphatase (38-126) U/L Total Creatine Kinase (30-135) U/L CK-MB (CK-2) CK-MB (CK-2) Rel Index Troponin I (0.01-0.034) ng/mL NT-Pro-B Natriuret Pep 129 H (<125) pg/mL Total Protein (6.3-8.2) g/dL Albumin (3.5-5.0) g/dL Globulin (1.7-4.1) g/dL Albumin/Globulin Ratio (1.0-2.8) Urine RBC None seen (0-5/HPF) Urine WBC 5-10/hpf H (0-5/HPF) Ur Squamous Epith Cells 1-5 /hpf (0-5/HPF) Amorphous Sediment 1+ Urine Bacteria Moderate (10-30) H (None) Ur Culture Indicated? Specimen cultured 03/14/22 Range/Units 16:50 WBC (4.5-11.0) X10^3/uL RBC (4.0-5.2) X10^6/uL Hgb (12.0-16.0) g/dL Hct (36-46) % MCV (80-100) fL MCH (26-34) PG MCHC (30-36) % RDW (11.6-14.8) % Plt Count (150-400) X10^3/uL Neut % (Auto) (50-75) % Lymph % (Auto) (25-40) % Wallace % (Auto) (3-14) % Eos % (Auto) (2-4) % Baso % (Auto) (0-2) % Neut # (Auto) (6849-3479) /uL Lymph # (Auto) (3776-3825) /uL Wallace # (Auto) (0-900) /uL Eos # (Auto) (0-450) /uL Baso # (Auto) (0-100) /uL Sodium (137-145) mmol/L Potassium (3.4-5.1) mmol/L Chloride (98-107) mmol/L Carbon Dioxide (22-32) mmol/L BUN (7-17) mg/dL Creatinine (0.52-1.04) mg/dL Estimated GFR (>60) mL/min BUN/Creatinine Ratio (6-22) Glucose (80-110) mg/dL Lactate (0.7-2.1) mmol/L Calcium (8.4-10.2) mg/dL Magnesium (1.6-2.3) mg/dL Total Bilirubin (0.2-1.3) mg/dL AST (14-36) IU/L ALT (<35) IU/L Alkaline Phosphatase (38-126) U/L Total Creatine Kinase 39 (30-135) U/L CK-MB (CK-2) TNP CK-MB (CK-2) Rel Index TNP Troponin I < 0.012 (0.01-0.034) ng/mL NT-Pro-B Natriuret Pep (<125) pg/mL Total Protein (6.3-8.2) g/dL Albumin (3.5-5.0) g/dL Globulin (1.7-4.1) g/dL Albumin/Globulin Ratio (1.0-2.8) Urine RBC (0-5/HPF) Urine WBC (0-5/HPF) Ur Squamous Epith Cells (0-5/HPF) Amorphous Sediment Urine Bacteria (None) Ur Culture Indicated? Urine Dip Bedside Urine Glucose Negative Bedside Urine Bilirubin - Negative Bedside Urine Ketone - Negative Urine Specific [place] 1.010 Bedside Urine Occult Blood - Negative Bedside Urine pH 7.5 Bedside Urine Protein - Negative Bedside Urine Urobilinogen - Negative Bedside Urine Nitrite - Negative Bedside Urine Leukocytes - Negative Esterase Imaging Data CT scan - abdomen/pelvis: Radiologist's Impression: PROCEDURE:? CT ABDOMEN PELVIS W CON ? INDICATIONS:? eval gallbladder, elevated bili, tender ? TECHNIQUE:? After the administration of IV contrast, axial sections were acquired from the lung bases to the pubic symphysis.? Coronal and sagittal reformats were performed.? For radiation dose reduction, the following was used:? automated exposure control, adjustment of mA and/or kV according to patient size. ? COMPARISON:? [facility], CT, CT HEAD/BRAIN WO CON, 03/14/2022, 14:22. ? FINDINGS:? Image quality:? This study is limited by body habitus.? ? Lung bases:? Unremarkable.? ? A small hiatal hernia is incidentally noted.? Heart:? No significant findings. ? ? ABDOMEN: Liver:? Unremarkable.? ? Gallbladder:? No significant gallbladder abnormality is seen by CT.? ? Biliary ducts:? Unremarkable.? ? Pancreas:? Unremarkable.? ? Spleen:? Unremarkable.? ? Adrenal Glands:? Unremarkable.? ? Kidneys and Ureters:? Mild bilateral hydronephrosis can be seen.? No hydroureter is seen. ?The kidneys demonstrate normal size and demonstrate normal, symmetric enhancement ? Stomach and Bowel:? Extensive distal colonic diverticulosis is seen, without margret findings of active diverticulitis.? The colon is unremarkable. No dilated loops small bowel are seen. Peritoneum:? No abnormal intraperitoneal fluid.? No free air.? ? Ventral Wall: ? No hernia.? Abdominal Nodes:? No retroperitoneal or mesenteric adenopathy by size criteria.? Vessels:? Aorta and inferior vena cava are normal in size.? ? PELVIS: Pelvic Organs: The uterus appears normal for age.? No adnexal masses are seen.? Bladder:? Unremarkable.? ? Pelvic Nodes: No enlarged lymph nodes.? Miscellaneous: No inguinal hernias are seen. ? ? ? Bones:? Mild levoconvex scoliotic curvature is noted.? At least moderate lumbar spine degenerative change can be seen.? Posteriorly directed endplate osteophytes are seen at L1-L2.? ? ? IMPRESSION:? ? Unremarkable gallbladder by CT. ? No biliary dilatation. ? Mild bilateral hydronephrosis. ?? ? Incidental note is made of: Small hiatal hernia Focal L1-L2 degenerative change ? Dictated by: Carlos Chu M.D. on 03/14/2022 at 13:46 ? ? Approved by: Carlos Chu M.D. on 03/14/2022 at 13:50 ? ECG Data Interpretation: EKG independently reviewed by myself at 1408 reveals normal sinus rhythm at 60 bpm with regular axis and intervals. No STEMI, ST segment changes, arrhythmia, or acute ischemic changes. MDM Narrative Medical decision making narrative: This is a 71-year-old female presents to the emergency department via EMS for dizziness/vertigo, having a hot flash while at the grocery store today with nausea and vomiting following. Patient was seen in the emergency department on 03/09/2022 for vertigo and sent home with meclizine. Today in the emergency department she was found to have a urinary tract infection without dysuria, frequency or urgency but she was incontinent x1 on the floor in room. She had intractable nausea and vomiting and was given 8 mg of Zofran prior to arrival, she was then later given 10 mg of Reglan, two doses of 2 mg of Valium IV, IV Benadryl and ceftriaxone for her UTI with history of allergy to penicillin with rash at 22 years of age. She still felt nauseated after the Reglan, Valium, oral Phenergan and Zofran. Her QT interval after Zofran was 414ms. She presented to the emergency department with systolic blood pressures in the 220s to 230 range, denies headache or vision changes but did have associated dizziness. She was likely dehydrated and appeared dry with hemo concentration in her labs, she was given 1 L of lactated Ringer's, her total bilirubin was elevated today at 2.0 and she had mild tenderness to the right upper quadrant with deeper palpation, her alkaline phosphatase is mildly elevated but stable with priors at 01:34, her BNP today is 129, urine wbc's of 5-10 with moderate bacteria urine culture is pending. CT abdomen pelvis with contrast shows unremarkable gallbladder by CT, no biliary duct dilatation, mild bilateral hydronephrosis, she did not have CVA tenderness on exam. She had persistent vomiting in the emergency department with systolic blood pressures that persisted in the 200s despite giving her home medications which she did not take 1st thing this morning of 100 mg of atenolol, lisinopril 5 mg daily, amlodipine 5 mg. Her troponin today is 0.12 She was later given 10 mg of IV hydralazine with mild improvement in her blood pressure. But then later it went right back up and discussion about Cardene drip versus additional oral meds, Dr. Salguero accepts patient for admission for hypertensive urgency with end-organ dysfunction, bilateral hydronephrosis, intractable vomiting, and vertigo. Patient was informed of lab and imaging results, pertinent diagnoses, consulting physicians, and treatment plan. I have spoken with the patient in regard to admission, patient understands and agrees. I have communicated the patient's evaluation and treatment plan to the admitting physician who agrees with admission. All questions answered at this time. <Parker Gonzalez MD - Last Filed: 03/15/22 07:06> Lab Data Labs: Lab Results 03/14/22 03/14/22 03/14/22 Range/Units 13:45 13:45 13:45 WBC 7.8 (4.5-11.0) X10^3/uL RBC 5.27 H (4.0-5.2) X10^6/uL Hgb 14.9 (12.0-16.0) g/dL Hct 45.4 (36-46) % MCV 86.1 (80-100) fL MCH 28.3 (26-34) PG MCHC 32.9 (30-36) % RDW 15.2 H (11.6-14.8) % Plt Count 234 (150-400) X10^3/uL Neut % (Auto) 54.4 (50-75) % Lymph % (Auto) 35.5 (25-40) % Wallace % (Auto) 7.0 (3-14) % Eos % (Auto) 2.7 (2-4) % Baso % (Auto) 0.4 (0-2) % Neut # (Auto) 4200 (7521-2316) /uL Lymph # (Auto) 2800 (0354-0310) /uL Wallace # (Auto) 500 (0-900) /uL Eos # (Auto) 200 (0-450) /uL Baso # (Auto) 0 (0-100) /uL Sodium 135 L (137-145) mmol/L Potassium 3.8 (3.4-5.1) mmol/L Chloride 102 (98-107) mmol/L Carbon Dioxide 27 (22-32) mmol/L BUN 13 (7-17) mg/dL Creatinine 0.74 (0.52-1.04) mg/dL Estimated GFR > 60 (>60) mL/min BUN/Creatinine Ratio 17.6 (6-22) Glucose 94 (80-110) mg/dL Lactate 1.7 (0.7-2.1) mmol/L Calcium 9.6 (8.4-10.2) mg/dL Magnesium (1.6-2.3) mg/dL Total Bilirubin 2.0 H (0.2-1.3) mg/dL AST 29 (14-36) IU/L ALT 24 (<35) IU/L Alkaline Phosphatase 134 H (38-126) U/L Total Creatine Kinase (30-135) U/L CK-MB (CK-2) CK-MB (CK-2) Rel Index Troponin I < 0.012 (0.01-0.034) ng/mL NT-Pro-B Natriuret Pep (<125) pg/mL Total Protein 8.3 H (6.3-8.2) g/dL Albumin 4.3 (3.5-5.0) g/dL Globulin 4.0 (1.7-4.1) g/dL Albumin/Globulin Ratio 1.1 (1.0-2.8) Urine RBC (0-5/HPF) Urine WBC (0-5/HPF) Ur Squamous Epith Cells (0-5/HPF) Amorphous Sediment Urine Bacteria (None) Ur Culture Indicated? 03/14/22 03/14/22 03/14/22 Range/Units 13:45 13:45 14:45 WBC (4.5-11.0) X10^3/uL RBC (4.0-5.2) X10^6/uL Hgb (12.0-16.0) g/dL Hct (36-46) % MCV (80-100) fL MCH (26-34) PG MCHC (30-36) % RDW (11.6-14.8) % Plt Count (150-400) X10^3/uL Neut % (Auto) (50-75) % Lymph % (Auto) (25-40) % Wallace % (Auto) (3-14) % Eos % (Auto) (2-4) % Baso % (Auto) (0-2) % Neut # (Auto) (0486-5015) /uL Lymph # (Auto) (4016-2602) /uL Wallace # (Auto) (0-900) /uL Eos # (Auto) (0-450) /uL Baso # (Auto) (0-100) /uL Sodium (137-145) mmol/L Potassium (3.4-5.1) mmol/L Chloride (98-107) mmol/L Carbon Dioxide (22-32) mmol/L BUN (7-17) mg/dL Creatinine (0.52-1.04) mg/dL Estimated GFR (>60) mL/min BUN/Creatinine Ratio (6-22) Glucose (80-110) mg/dL Lactate (0.7-2.1) mmol/L Calcium (8.4-10.2) mg/dL Magnesium 1.8 (1.6-2.3) mg/dL Total Bilirubin (0.2-1.3) mg/dL AST (14-36) IU/L ALT (<35) IU/L Alkaline Phosphatase (38-126) U/L Total Creatine Kinase (30-135) U/L CK-MB (CK-2) CK-MB (CK-2) Rel Index Troponin I (0.01-0.034) ng/mL NT-Pro-B Natriuret Pep 129 H (<125) pg/mL Total Protein (6.3-8.2) g/dL Albumin (3.5-5.0) g/dL Globulin (1.7-4.1) g/dL Albumin/Globulin Ratio (1.0-2.8) Urine RBC None seen (0-5/HPF) Urine WBC 5-10/hpf H (0-5/HPF) Ur Squamous Epith Cells 1-5 /hpf (0-5/HPF) Amorphous Sediment 1+ Urine Bacteria Moderate (10-30) H (None) Ur Culture Indicated? Specimen cultured 03/14/22 Range/Units 16:50 WBC (4.5-11.0) X10^3/uL RBC (4.0-5.2) X10^6/uL Hgb (12.0-16.0) g/dL Hct (36-46) % MCV (80-100) fL MCH (26-34) PG MCHC (30-36) % RDW (11.6-14.8) % Plt Count (150-400) X10^3/uL Neut % (Auto) (50-75) % Lymph % (Auto) (25-40) % Wallace % (Auto) (3-14) % Eos % (Auto) (2-4) % Baso % (Auto) (0-2) % Neut # (Auto) (8724-0539) /uL Lymph # (Auto) (6566-7949) /uL Wallace # (Auto) (0-900) /uL Eos # (Auto) (0-450) /uL Baso # (Auto) (0-100) /uL Sodium (137-145) mmol/L Potassium (3.4-5.1) mmol/L Chloride (98-107) mmol/L Carbon Dioxide (22-32) mmol/L BUN (7-17) mg/dL Creatinine (0.52-1.04) mg/dL Estimated GFR (>60) mL/min BUN/Creatinine Ratio (6-22) Glucose (80-110) mg/dL Lactate (0.7-2.1) mmol/L Calcium (8.4-10.2) mg/dL Magnesium (1.6-2.3) mg/dL Total Bilirubin (0.2-1.3) mg/dL AST (14-36) IU/L ALT (<35) IU/L Alkaline Phosphatase (38-126) U/L Total Creatine Kinase 39 (30-135) U/L CK-MB (CK-2) TNP CK-MB (CK-2) Rel Index TNP Troponin I < 0.012 (0.01-0.034) ng/mL NT-Pro-B Natriuret Pep (<125) pg/mL Total Protein (6.3-8.2) g/dL Albumin (3.5-5.0) g/dL Globulin (1.7-4.1) g/dL Albumin/Globulin Ratio (1.0-2.8) Urine RBC (0-5/HPF) Urine WBC (0-5/HPF) Ur Squamous Epith Cells (0-5/HPF) Amorphous Sediment Urine Bacteria (None) Ur Culture Indicated? Urine Dip Bedside Urine Glucose Negative Bedside Urine Bilirubin - Negative Bedside Urine Ketone - Negative Urine Specific Eugene 1.010 Bedside Urine Occult Blood - Negative Bedside Urine pH 7.5 Bedside Urine Protein - Negative Bedside Urine Urobilinogen - Negative Bedside Urine Nitrite - Negative Bedside Urine Leukocytes - Negative Esterase Discharge Plan Departure Patient Disposition: Admitted as Observation Clinical Impression: Vertigo, Hypertensive urgency, Intractable vomiting, Total bilirubin, elevated Acute cystitis Qualifiers: Hematuria presence: without hematuria Qualified Code(s): N30.00 - Acute cystitis without hematuria Hydronephrosis Qualifiers: Hydronephrosis type: unspecified Qualified Code(s): N13.30 - Unspecified hydronephrosis Admit Date/Time: 03/14/22 17:16 Admit Provider: Carlin Salguero <Parker Gonzalez MD - Last Filed: 03/15/22 07:06> Cosign ED Attending Cosignature Attestation: I was immediately available in the department for consultation. ?This documentation has been reviewed and I agree with assessment and plan. Supervised by Parker Gonzalez MD
[2022-03-14 14:03] LABS: Add Manual Diff / Slide Review NO; Basophils Absolute Auto 0 /uL (0-100); Basophils Percent Auto 0.4 % (0-2); Eosinophils Absolute Auto 200 /uL (0-450); Eosinophils Percent Auto 2.7 % (2-4); Hematocrit 45.4 % (36-46); Hemoglobin 14.9 g/dL (12.0-16.0); Lymphocytes Absolute Auto 2800 /uL (1100-4500); Lymphocytes Percent Auto 35.5 % (25-40); Mean Corpuscular HGB Conc 32.9 % (30-36); Mean Corpuscular Hemoglobin 28.3 PG (26-34); Mean Corpuscular Volume 86.1 fL (80-100); Monocytes Absolute Auto 500 /uL (0-900); Neutrophils Absolute Auto 4200 /uL (1500-7000); Neutrophils Percent Auto 54.4 % (50-75); Platelet Count 234 X10^3/uL (150-400); Red Blood Cell Count 5.27 X10^6/uL (4.0-5.2); Red Cell Distribution Width 15.2 % (11.6-14.8); White Blood Cell Count 7.8 X10^3/uL (4.5-11.0)
[2022-03-14] MEDS: MECLIZINE HCL 12.5 MG TABLET 25 MG PO (14:03)
[2022-03-14] MEDS: AMLODIPINE 5 MG TABLET PO (14:03)
[2022-03-14] MEDS: LACTATED RINGERS 500 ML 1000 ML IV (14:04)
[2022-03-14 14:07] LABS: Alanine Aminotransferase 24 IU/L (<35); Albumin 4.3 g/dL (3.5-5.0); Albumin Globulin Ratio 1.1 (1.0-2.8); Alkaline Phosphatase 134 U/L (38-126); Aspartate Aminotransferase 29 IU/L (14-36); BUN Creatinine Ratio 17.6 (6-22); Blood Urea Nitrogen 13 mg/dL (7-17); Calcium 9.6 mg/dL (8.4-10.2); Carbon Dioxide 27 mmol/L (22-32); Chloride 102 mmol/L (98-107); Estimated Glomerular Filt Rate > 60 mL/min (>60); Glucose 94 mg/dL (80-110); HEMOLYSIS < 15 (0-50); Lactate (Lactic Acid) 1.7 mmol/L (0.7-2.1); Potassium 3.8 mmol/L (3.4-5.1); Sodium 135 mmol/L (137-145); Total Protein 8.3 g/dL (6.3-8.2)
--- NOTE | 2022-03-14 14:07 | DI.CT.S_ITS ---
PROCEDURE: CT HEAD/BRAIN WO CON INDICATIONS: hypertensive crisis, dizziness/vertigo TECHNIQUE: Noncontrast 4.5 mm thick angled axial sections acquired from the foramen magnum to the vertex, with coronal and sagittal reformats. For radiation dose reduction, the following was used: automated exposure control, adjustment of mA and/or kV according to patient size. COMPARISON: [facility], CT, CT ABDOMEN PELVIS W CON, 03/14/2022, 14:22. [facility], CT, HEAD WITHOUT CONTRAST, 04/12/2017, 10:49. FINDINGS: Image quality: Excellent. CSF spaces: Basal cisterns are patent. No extra-axial fluid collections. The ventricles are symmetric in size and shape. Brain: No intracranial bleeds or masses. There is cerebral volume loss for age, with resultant ventricular and sulcal prominence. There are periventricular and deep white matter chronic small vessel ischemic changes. There is intracranial internal carotid artery atherosclerosis. Skull and face: Calvarium and visualized facial bones appear intact, without suspicious lesions. Sinuses: Visualized sinuses and mastoids are clear. IMPRESSION: Unremarkable noncontrast head CT for age. No acute intracranial hemorrhage is seen. Dictated by: Carlos Chu M.D. on 03/14/2022 at 13:45 Approved by: Carlos Chu M.D. on 03/14/2022 at 13:45
[2022-03-14] MEDS: atenoloL 50 MG TABLET 100 MG PO (14:08)
[2022-03-14] MEDS: lisinopriL 20 MG TABLET 5 MG PO (14:08)
[2022-03-14] MEDS: diazePAM 10 MG/2 ML SYRINGE 2 MG IV ×2 (14:11→15:46)
--- NOTE | 2022-03-14 14:13 | DI.US.S_ITS ---
PROCEDURE: US ABDOMEN LIMITED INDICATIONS: gallstones vs cholecystitis? TECHNIQUE: Real-time focused scanning was performed of the abdomen, with image documentation. COMPARISON: [facility], CT, CT ABDOMEN PELVIS W CON, 03/14/2022, 14:22. FINDINGS: The liver is normal in size and demonstrates no focal lesions. No findings of gallstones or sludge are seen. The gallbladder wall is not thickened, measuring 3 mm or less. No specific pericholecystic fluid is seen. The sonographic Bolaños sign is negative. There is no biliary dilatation, the common bile duct measures 8 mm, which is at the upper limits of normal for patient of this age. No significant pancreatic abnormality is seen on these images. IMPRESSION: The gallbladder demonstrates a normal sonographic appearance. No biliary dilatation is seen. Dictated by: Carlos Chu M.D. on 03/14/2022 at 14:57 Approved by: Carlos Chu M.D. on 03/14/2022 at 14:58
--- NOTE | 2022-03-14 14:13 | DI.CT.S_ITS ---
PROCEDURE: CT ABDOMEN PELVIS W CON INDICATIONS: eval gallbladder, elevated bili, tender TECHNIQUE: After the administration of IV contrast, axial sections were acquired from the lung bases to the pubic symphysis. Coronal and sagittal reformats were performed. For radiation dose reduction, the following was used: automated exposure control, adjustment of mA and/or kV according to patient size. COMPARISON: [facility], CT, CT HEAD/BRAIN WO [facility], 03/14/2022, 14:22. FINDINGS: Image quality: This study is limited by body habitus. Lung bases: Unremarkable. A small hiatal hernia is incidentally noted. Heart: No significant findings. ABDOMEN: Liver: Unremarkable. Gallbladder: No significant gallbladder abnormality is seen by CT. Biliary ducts: Unremarkable. Pancreas: Unremarkable. Spleen: Unremarkable. Adrenal Glands: Unremarkable. Kidneys and Ureters: Mild bilateral hydronephrosis can be seen. No hydroureter is seen. The kidneys demonstrate normal size and demonstrate normal, symmetric enhancement Stomach and Bowel: Extensive distal colonic diverticulosis is seen, without margret findings of active diverticulitis. The colon is unremarkable. No dilated loops small bowel are seen. Peritoneum: No abnormal intraperitoneal fluid. No free air. Ventral Wall: No hernia. Abdominal Nodes: No retroperitoneal or mesenteric adenopathy by size criteria. Vessels: Aorta and inferior vena cava are normal in size. PELVIS: Pelvic Organs: The uterus appears normal for age. No adnexal masses are seen. Bladder: Unremarkable. Pelvic Nodes: No enlarged lymph nodes. Miscellaneous: No inguinal hernias are seen. Bones: Mild levoconvex scoliotic curvature is noted. At least moderate lumbar spine degenerative change can be seen. Posteriorly directed endplate osteophytes are seen at L1-L2. IMPRESSION: Unremarkable gallbladder by CT. No biliary dilatation. Mild bilateral hydronephrosis. Incidental note is made of: Small hiatal hernia Focal L1-L2 degenerative change Dictated by: Carlos Chu M.D. on 03/14/2022 at 13:46 Approved by: Carlos Chu M.D. on 03/14/2022 at 13:50
[2022-03-14 14:18] LABS: Troponin I < 0.012 ng/mL (0.01-0.034)
[2022-03-14 14:33] LABS: Magnesium 1.8 mg/dL (1.6-2.3)
[2022-03-14 14:43] LABS: NT-proBNP (BNP-Adult 18+) 129 pg/mL (<125)
--- NOTE | 2022-03-14 15:00 | PC.NURSE ---
pt assisted up to commode, pt voided through pants. new underwear and pad provided, pt voided 400ml in commode, bed change and clothing in pt bag.
[2022-03-14 15:19] LABS: Amorphous Sediment Urine 1+; Bacteria Urine Moderate (10-30); Culture Indicated Urine Specimen Cultured; RBC Urine None Seen (0-5/HPF); Squamous Epithelial Cell Urine 1-5 /HPF (0-5/HPF); WBC Urine 5-10/HPF (0-5/HPF)
[2022-03-14] MEDS: KETOROLAC 30 MG/ML VIAL 15 MG IV (15:46)
[2022-03-14] MEDS: METOCLOPRAMIDE 10 MG/2 ML INJ IV (15:46)
[2022-03-14] MEDS: PROMETHAZINE 25 MG TABLET 12.5 MG PO (16:27)
[2022-03-14] MEDS: diphenhydrAMINE 50 MG/ML VIAL 25 MG IV (17:09)
[2022-03-14] MEDS: HYDRALAZINE 20 MG/ML VIAL 10 MG IV (17:10)
[2022-03-14] MEDS: cefTRIAXone 1,000 MG in SODIUM CHLORIDE 0.9% 100 ML 200 MG IV (17:11)
[2022-03-14 17:54] LABS: Creatine Kinase 39 U/L (30-135)
[2022-03-14 18:05] LABS: COVID19 -Nasal RAPID Negative (Negative)
[2022-03-14 18:07] LABS: Troponin I < 0.012 ng/mL (0.01-0.034)
--- NOTE | 2022-03-14 19:35 | P.HP_ITS ---
History of Present Illness History of Present Illness Date Patient Seen: 03/14/22 Time Patient Seen: 19:36 Date of Onset of Symptoms: 03/14/22 Chief complaint: Vertigo/Nausea Narrative: Pt presents via EMS from [employer] parking lot where she developed acute onset nausea malaise dizziness under the heat lamp at the checkout counter. Did pre sent to ED on Friday fro somewhat similar but not as severe issue which she had attributed to heavy marijuana use at that time. However reports no marijuana use since Friday and has actually been feeling pretty good until the checkout counter today but does endorse some urinary urgency. In ED she was found to have impressive and refractory hypertension although she reports compliance with all three of her medications. Some evidence of end organ damage so admitted for management of hypertensive emergency. Also noted to have UTI with bilateral hydronephrosis on exam per nursing UOP has been clear and prodigious since coming in. Patient History Medical History (Updated 03/14/22 @ 19:53 by SANDY Almanza) Hypertension Surgical History No pertinent past surgical history Family & Social History Social History: household members family Prior Living Arrangements Apartment/Condo Safety & Behavioral: Feels Safe in Current Yes Environment Been Physically Hurt or No Threatened By a Person Tobacco & Substance use: Smoking Status Never smoker alcohol intake frequency a few times a week Substance Use Type does not use Meds Home Medications and Allergies Home Medications Medication Instructions Recorded Confirmed Type atenolol 100 mg tablet 100 mg PO DAILY 07/16/18 03/14/22 History amlodipine 5 mg tablet 5 mg PO DAILY 03/14/22 03/14/22 History escitalopram oxalate 10 mg tablet 10 mg PO DAILY 03/14/22 03/14/22 History (Lexapro) lisinopril 20 mg tablet 40 mg PO DAILY 03/14/22 03/14/22 History Allergies Allergy/AdvReac Type Severity Reaction Status Date / Time Penicillins [PENICILLINS] Allergy Intermediate Verified 01/02/22 09:34 Review of Systems Review of Systems Narrative: all systems reviewed and negative except as otherwise documented in HPI Exam Vital Signs (past 8 hours): - 03/14/22 13:35 03/14/22 13:41 03/14/22 14:00 Temperature 98.6 F Pulse Rate 64 66 60 Respiratory Rate 18 16 14 Blood Pressure 224/104 H Pulse Oximetry 99 98 98 Oxygen Delivery Method Room Air Oxygen Flow Rate 03/14/22 14:01 03/14/22 14:01 03/14/22 14:46 Temperature Pulse Rate 60 60 Respiratory Rate 16 19 Blood Pressure 218/95 H Pulse Oximetry 99 95 Oxygen Delivery Method Oxygen Flow Rate 03/14/22 15:00 03/14/22 15:05 03/14/22 15:05 Temperature Pulse Rate 55 L 55 L Respiratory Rate 18 18 Blood Pressure 224/98 H Pulse Oximetry 95 98 Oxygen Delivery Method Oxygen Flow Rate 03/14/22 15:30 03/14/22 15:31 03/14/22 15:31 Temperature Pulse Rate 58 L 55 L Respiratory Rate 17 15 Blood Pressure 249/109 H Pulse Oximetry Oxygen Delivery Method Oxygen Flow Rate 03/14/22 15:36 03/14/22 15:36 03/14/22 16:00 Temperature Pulse Rate 53 L 56 L Respiratory Rate 24 23 Blood Pressure 225/102 H Pulse Oximetry 98 91 Oxygen Delivery Method Oxygen Flow Rate 03/14/22 16:01 03/14/22 16:01 03/14/22 16:08 Temperature Pulse Rate 51 L 53 L Respiratory Rate 22 Blood Pressure 227/102 H Pulse Oximetry 98 97 Oxygen Delivery Method Oxygen Flow Rate 03/14/22 16:08 03/14/22 16:30 03/14/22 16:30 Temperature Pulse Rate 53 L Respiratory Rate 17 Blood Pressure 208/100 H 222/100 H Pulse Oximetry 97 Oxygen Delivery Method Oxygen Flow Rate 03/14/22 17:10 03/14/22 16:57 03/14/22 16:57 Temperature Pulse Rate 52 L 56 L Respiratory Rate Blood Pressure 208/101 H 224/94 H Pulse Oximetry 97 Oxygen Delivery Method Oxygen Flow Rate 03/14/22 17:00 03/14/22 17:01 03/14/22 17:01 Temperature Pulse Rate 53 L 52 L Respiratory Rate Blood Pressure 208/101 H Pulse Oximetry 98 98 Oxygen Delivery Method Oxygen Flow Rate 03/14/22 17:20 03/14/22 17:20 03/14/22 17:23 Temperature Pulse Rate 52 L Respiratory Rate Blood Pressure 237/109 H 226/107 H Pulse Oximetry 97 Oxygen Delivery Method Oxygen Flow Rate 03/14/22 17:23 03/14/22 17:25 03/14/22 17:25 Temperature Pulse Rate 53 L 55 L Respiratory Rate Blood Pressure 219/102 H Pulse Oximetry 98 98 Oxygen Delivery Method Oxygen Flow Rate 03/14/22 17:30 03/14/22 17:30 03/14/22 17:33 Temperature Pulse Rate 57 L Respiratory Rate Blood Pressure 222/98 H 217/93 H Pulse Oximetry 99 Oxygen Delivery Method Oxygen Flow Rate 03/14/22 17:33 03/14/22 17:35 03/14/22 17:35 Temperature Pulse Rate 57 L 55 L Respiratory Rate Blood Pressure 225/95 H Pulse Oximetry 99 99 Oxygen Delivery Method Oxygen Flow Rate 03/14/22 17:40 03/14/22 17:40 03/14/22 17:47 Temperature 96.8 F L Pulse Rate 57 L 55 L Respiratory Rate 19 Blood Pressure 199/88 H 198/83 H Pulse Oximetry 99 98 Oxygen Delivery Method Oxygen Flow Rate 0 Oxygen Delivery Method Room Air Oxygen Flow Rate 0 Narrative Exam Narrative: pleasant elder female laying in bed watching TV Const General: cooperative and comfortable HENVT Head: normocephalic and atraumatic Resp Effort & Inspection: normal respiratory effort and able to speak in complete sentences Auscultation: clear to auscultation bilaterally Cardio Rate: bradycardic Rhythm: regular rhythm GI Palpation: soft Auscultation: normal bowel sounds Skin General: no rashes or lesions noted Neuro General: patient alert, patient awake, patient oriented x3, moves all extremities and CN's II-XI intact bilaterally Extrem General: normal to inspection, full ROM, no pedal edema and no calf tenderness Psych Appearance: grossly normal Mental Status: mental status grossly normal Speech and Movement: speech and movement normal Objective Labs Result Diagrams: 03/14/22 13:45 03/14/22 13:45 Labs: Laboratory Results - last 24 hr 03/14/22 03/14/22 03/14/22 13:45 13:45 13:45 WBC 7.8 RBC 5.27 H Hgb 14.9 Hct 45.4 MCV 86.1 MCH 28.3 MCHC 32.9 RDW 15.2 H Plt Count 234 Neut % (Auto) 54.4 Lymph % (Auto) 35.5 Mccormick % (Auto) 7.0 Eos % (Auto) 2.7 Baso % (Auto) 0.4 Neut # (Auto) 4200 Lymph # (Auto) 2800 Mccormick # (Auto) 500 Eos # (Auto) 200 Baso # (Auto) 0 Sodium 135 L Potassium 3.8 Chloride 102 Carbon Dioxide 27 BUN 13 Creatinine 0.74 Estimated GFR > 60 BUN/Creatinine Ratio 17.6 Glucose 94 Lactate 1.7 Calcium 9.6 Magnesium Total Bilirubin 2.0 H AST 29 ALT 24 Alkaline Phosphatase 134 H Total Creatine Kinase CK-MB (CK-2) CK-MB (CK-2) Rel Index Troponin I < 0.012 NT-Pro-B Natriuret Pep Total Protein 8.3 H Albumin 4.3 Globulin 4.0 Albumin/Globulin Ratio 1.1 Urine RBC Urine WBC Ur Squamous Epith Cells Amorphous Sediment Urine Bacteria Ur Culture Indicated? SARS-CoV-2 (PCR) 03/14/22 03/14/22 03/14/22 13:45 13:45 14:45 WBC RBC Hgb Hct MCV MCH MCHC RDW Plt Count Neut % (Auto) Lymph % (Auto) Mccormick % (Auto) Eos % (Auto) Baso % (Auto) Neut # (Auto) Lymph # (Auto) Mccormick # (Auto) Eos # (Auto) Baso # (Auto) Sodium Potassium Chloride Carbon Dioxide BUN Creatinine Estimated GFR BUN/Creatinine Ratio Glucose Lactate Calcium Magnesium 1.8 Total Bilirubin AST ALT Alkaline Phosphatase Total Creatine Kinase CK-MB (CK-2) CK-MB (CK-2) Rel Index Troponin I NT-Pro-B Natriuret Pep 129 H Total Protein Albumin Globulin Albumin/Globulin Ratio Urine RBC None seen Urine WBC 5-10/hpf H Ur Squamous Epith Cells 1-5 /hpf Amorphous Sediment 1+ Urine Bacteria Moderate (10-30) H Ur Culture Indicated? Specimen cultured SARS-CoV-2 (PCR) 03/14/22 03/14/22 16:50 17:31 WBC RBC Hgb Hct MCV MCH MCHC RDW Plt Count Neut % (Auto) Lymph % (Auto) Mccormick % (Auto) Eos % (Auto) Baso % (Auto) Neut # (Auto) Lymph # (Auto) Mccormick # (Auto) Eos # (Auto) Baso # (Auto) Sodium Potassium Chloride Carbon Dioxide BUN Creatinine Estimated GFR BUN/Creatinine Ratio Glucose Lactate Calcium Magnesium Total Bilirubin AST ALT Alkaline Phosphatase Total Creatine Kinase 39 CK-MB (CK-2) TNP CK-MB (CK-2) Rel Index TNP Troponin I < 0.012 NT-Pro-B Natriuret Pep Total Protein Albumin Globulin Albumin/Globulin Ratio Urine RBC Urine WBC Ur Squamous Epith Cells Amorphous Sediment Urine Bacteria Ur Culture Indicated? SARS-CoV-2 (PCR) Negative Assessment & Plan Assessment & Plan narrative: #hypertensive emergency acute on chronic admitted for mgmt and monitoring continue lisinopril 40 atenolol 100 increasing amlodipine to 10 adding hctz 25 prn hydralazine troponins look ok #nausea impressive in ED, now seems ok s/p multiple meds, monitor, encourage po fluids as tolerated #major depression continue home lexapro 10 mg seems stable today #acute cystitis with mild bilateral hydronephrosis urine culture pending continue rocephin she reports a few days urgency without much output - nursing reports since getting to the floor her uop has been clear and copious via purewick #mild hyponatremia possible element of potomania? monitor code: DNR PCP: Noemy MDM: ish Qiuson diet: general allergies: PCN Time Spent With Patient Critical Care time: I spent a total of [] minutes of critical care time on this patient's care today; this time is exclusive of procedural time.
[2022-03-15] VITALS: BP 139/74; PULSE 71; RESP 16; TEMP 36.7; O2SAT 98
[2022-03-15 04:00] VITALS: BP 161/79; PULSE 50; RESP 16; TEMP 36.8; O2SAT 98
[2022-03-15 05:42] VITALS: BP 148/82
[2022-03-15 05:47] LABS: Add Manual Diff / Slide Review NO; Basophils Absolute Auto 0 /uL (0-100); Basophils Percent Auto 0.5 % (0-2); Eosinophils Absolute Auto 200 /uL (0-450); Eosinophils Percent Auto 2.6 % (2-4); Hematocrit 44.2 % (36-46); Hemoglobin 14.9 g/dL (12.0-16.0); Lymphocytes Absolute Auto 2100 /uL (1100-4500); Lymphocytes Percent Auto 27.6 % (25-40); Mean Corpuscular HGB Conc 33.8 % (30-36); Mean Corpuscular Volume 85.7 fL (80-100); Monocytes Absolute Auto 500 /uL (0-900); Monocytes Percent Auto 6.6 % (3-14); Neutrophils Absolute Auto 4700 /uL (1500-7000); Neutrophils Percent Auto 62.7 % (50-75); Platelet Count 224 X10^3/uL (150-400); Red Blood Cell Count 5.16 X10^6/uL (4.0-5.2); Red Cell Distribution Width 15.4 % (11.6-14.8); White Blood Cell Count 7.5 X10^3/uL (4.5-11.0)
[2022-03-15 05:49] LABS: Alanine Aminotransferase 21 IU/L (<35); Albumin Globulin Ratio 1.1 (1.0-2.8); Alkaline Phosphatase 108 U/L (38-126); Aspartate Aminotransferase 25 IU/L (14-36); BUN Creatinine Ratio 18.1 (6-22); Bilirubin Total 2.1 mg/dL (0.2-1.3); Blood Urea Nitrogen 15 mg/dL (7-17); Calcium 9.4 mg/dL (8.4-10.2); Carbon Dioxide 31 mmol/L (22-32); Chloride 102 mmol/L (98-107); Estimated Glomerular Filt Rate > 60 mL/min (>60); Globulin 3.6 g/dL (1.7-4.1); Glucose 103 mg/dL (80-110); HEMOLYSIS < 15 (0-50); Potassium 3.9 mmol/L (3.4-5.1); Sodium 141 mmol/L (137-145); Total Protein 7.6 g/dL (6.3-8.2)
[2022-03-15 08:00] VITALS: BP 150/75; PULSE 48; RESP 20; TEMP 37.7; O2SAT 99
[2022-03-15 08:55] VITALS: BP 140/82; PULSE 62
[2022-03-15] MEDS: lisinopriL 20 MG TABLET 40 MG PO (08:55)
[2022-03-15] MEDS: AMLODIPINE 5 MG TABLET 10 MG PO (08:56)
[2022-03-15] MEDS: ESCITALOPRAM 10 MG TABLET PO (08:57)
[2022-03-15] MEDS: atenoloL 50 MG TABLET 100 MG PO (08:57)
[2022-03-15] MEDS: DOCUSATE 100 MG CAPSULE PO (08:57)
[2022-03-15] MEDS: ENOXAPARIN 40 MG/0.4 ML SYRINGE SUBCUT (08:57)
[2022-03-15 12:10] VITALS: BP 106/61; PULSE 45; RESP 20; TEMP 37.6; O2SAT 97
[2022-03-15] MEDS: cefTRIAXone 1,000 MG in SODIUM CHLORIDE 0.9% 100 ML 200 MG IV (12:14)
--- NOTE | 2022-03-15 12:19 | CM.DANOTE ---
Initial DCP Assessment Note Pt is a 71 yo female, resident of [place], arrives with vertigo/nausea and admitted observation for hypertensive emergency. Likely discharge this afternoon PCP: Formerly Dr Jiménez, [facility] Payer: [facility], [place] Reviewed chart, met w/patient to introduce self and role. Patient lives w/her family and patient feels confident they can meet her needs once she discharges home, likely over the next 24 hrs. No barriers identified at this time to patient's safe discharge home w/family to assist; close outpatient f/u recommended. MIQUEL Mayer Discharge Planning/Care Management CM Discharge Assessment Start: 03/15/22 12:15 Freq: Status: Active Protocol: Document 03/15/22 12:15 KATHERINE (Rec: 03/15/22 12:18 KATHERINE [id number]) Discharge Planning Assessment Assigned Management Lecturer MIQUEL Hatch DPOA/Assigned Designee Name Khris Halereinaldo Contact Information [phone] Advance Directives? Yes Advance Directives on File Yes History Provided By Patient Prior Living Arrangements Apartment/Condo Household Members family Type of transporation used prior to Relies on Others admit Independent with ADL's Yes Is patient alert and oriented? Yes Barriers to Discharge No Comment Home with family expected Discharge Plan Home Transportation Arrangement family Referrals Initiated None needed
--- NOTE | 2022-03-15 14:26 | PM.DS.1 ---
History of Present Illness History of Present Illness Chief complaint: Vertigo/Nausea Narrative: [facility] where she developed acute onset nausea malaise dizziness under the heat lamp at the checkout counter. Did present to ED on Friday for somewhat similar but not as severe issue which she had attributed to heavy marijuana use at that time. However reports no marijuana use since Friday and has actually been feeling pretty good until the checkout counter today but does endorse some urinary urgency. In ED she was found to have impressive and refractory hypertension although she reports compliance with all three of her medications. Some evidence of end organ damage so admitted for management of hypertensive emergency. Also noted to have UTI with bilateral hydronephrosis on exam. Did well overnight with stable vitals and good appetite this morning. Discharge Providers Provider Date of admission: 03/14/22 17:16 Discharge Date: 03/15/22 Primary care physician: Arturo Jiménez MD Discharge provider: Carlin Salguero MD Summary Hospital Course Discharge Diagnosis: #hypertensive emergency acute on chronic #nausea #major depression #acute cystitis with mild bilateral hydronephrosis #mild hyponatremia Hospital Course: Ms. Gutierrez was admitted in hypertensive crisis and was found to have a severe UTI with some hydronephrosis . She was treated with antihypertensives fluids and antibiotics and improved clinically very nicely. By day 2 her vitals were resolved and she was feeling much better Her BP normalized on her home regimen and after getting a second dose of rocephin she is good to go home complete out pt course of abx and f/u with pcp next week. Exam Vital Signs (past 8 hours): - 03/15/22 08:55 03/15/22 08:00 03/15/22 07:00 Temperature 99.8 F H Pulse Rate 62 48 L Respiratory Rate 20 Blood Pressure 140/82 150/75 H Pulse Oximetry 99 Oxygen Delivery Method Room Air Oxygen Flow Rate 0 03/15/22 12:10 Temperature 99.6 F Pulse Rate 45 L Respiratory Rate 20 Blood Pressure 106/61 Pulse Oximetry 97 Oxygen Delivery Method Oxygen Flow Rate 0 Oxygen Delivery Method Room Air Oxygen Flow Rate 0 Narrative Exam Narrative: cheerful elder laying in bed Const General: cooperative, comfortable and well developed [facility] Head: normocephalic and atraumatic Eyes General: appearance normal, both eyes and all related structures Resp Auscultation: clear to auscultation bilaterally Cardio Other: RRR S1./S2 GI Other: soft nontender normal bowel sounds Neuro General: patient alert, patient awake, patient oriented x3, moves all extremities and CN's II-XI intact bilaterally Extrem General: no pedal edema Psych Mental Status: mental status grossly normal Objective Labs Result Diagrams: 03/15/22 05:02 03/15/22 05:02 Labs: Laboratory Results - last 24 hr 03/14/22 03/14/22 03/14/22 13:45 13:45 14:45 WBC RBC Hgb Hct MCV MCH MCHC RDW Plt Count Neut % (Auto) Lymph % (Auto) [place] % (Auto) Eos % (Auto) Baso % (Auto) Neut # (Auto) Lymph # (Auto) [place] # (Auto) Eos # (Auto) Baso # (Auto) Sodium Potassium Chloride Carbon Dioxide BUN Creatinine Estimated GFR BUN/Creatinine Ratio Glucose Calcium Magnesium 1.8 Total Bilirubin AST ALT Alkaline Phosphatase Total Creatine Kinase CK-MB (CK-2) CK-MB (CK-2) Rel Index Troponin I NT-Pro-B Natriuret Pep 129 H Total Protein Albumin Globulin Albumin/Globulin Ratio Urine RBC None seen Urine WBC 5-10/hpf H Ur Squamous Epith Cells 1-5 /hpf Amorphous Sediment 1+ Urine Bacteria Moderate (10-30) H Ur Culture Indicated? Specimen cultured SARS-CoV-2 (PCR) 03/14/22 03/14/22 03/15/22 16:50 17:31 05:02 WBC 7.5 RBC 5.16 Hgb 14.9 Hct 44.2 MCV 85.7 MCH 29.0 MCHC 33.8 RDW 15.4 H Plt Count 224 Neut % (Auto) 62.7 Lymph % (Auto) 27.6 [place] % (Auto) 6.6 Eos % (Auto) 2.6 Baso % (Auto) 0.5 Neut # (Auto) 4700 Lymph # (Auto) 2100 [place] # (Auto) 500 Eos # (Auto) 200 Baso # (Auto) 0 Sodium Potassium Chloride Carbon Dioxide BUN Creatinine Estimated GFR BUN/Creatinine Ratio Glucose Calcium Magnesium Total Bilirubin AST ALT Alkaline Phosphatase Total Creatine Kinase 39 CK-MB (CK-2) TNP CK-MB (CK-2) Rel Index TNP Troponin I < 0.012 NT-Pro-B Natriuret Pep Total Protein Albumin Globulin Albumin/Globulin Ratio Urine RBC Urine WBC Ur Squamous Epith Cells Amorphous Sediment Urine Bacteria Ur Culture Indicated? SARS-CoV-2 (PCR) Negative 03/15/22 05:02 WBC RBC Hgb Hct MCV MCH MCHC RDW Plt Count Neut % (Auto) Lymph % (Auto) [place] % (Auto) Eos % (Auto) Baso % (Auto) Neut # (Auto) Lymph # (Auto) [place] # (Auto) Eos # (Auto) Baso # (Auto) Sodium 141 Potassium 3.9 Chloride 102 Carbon Dioxide 31 BUN 15 Creatinine 0.83 Estimated GFR > 60 BUN/Creatinine Ratio 18.1 Glucose 103 Calcium 9.4 Magnesium Total Bilirubin 2.1 H AST 25 ALT 21 Alkaline Phosphatase 108 Total Creatine Kinase CK-MB (CK-2) CK-MB (CK-2) Rel Index Troponin I NT-Pro-B Natriuret Pep Total Protein 7.6 Albumin 4.0 Globulin 3.6 Albumin/Globulin Ratio 1.1 Urine RBC Urine WBC Ur Squamous Epith Cells Amorphous Sediment Urine Bacteria Ur Culture Indicated? SARS-CoV-2 (PCR) [facility] Medical History (Updated 03/14/22 @ 19:53 by SANDY Almanza) Hypertension Surgical History No pertinent past surgical history Social History household members: family Smoking Status: Never smoker Discharge Assessment & Plan Assessment and Plan Assessment: #hypertensive emergency acute on chronic BP stable on floor since ED mgmt - suspect this is 2/2 UTI which is being treated continue lisinopril 40 atenolol 100 increasing amlodipine to 10 did not give HCTZ because her pressure came down prn hydralazine troponins look ok #nausea impressive in ED, now seems ok s/p multiple meds, monitor, encourage po fluids as tolerated #major depression continue home lexapro 10 mg seems stable #acute cystitis with mild bilateral hydronephrosis urine culture pending continue rocephin good UOP continue abx on discharge and f/u in PCP office next week #mild hyponatremia possible element of potomania? monitor code: DNR PCP: Noemy MDM: ish Qiuson diet: general allergies: PCN Discharge Plan Discharge Plan Patient Disposition: Home Discharge orders & Medications Prescriptions: New amlodipine [Norvasc] 5 mg Tablet 10 mg PO DAILY Qty: 30 0RF sulfamethoxazole-trimethoprim [Bactrim DS] 800-160 mg tablet 1 tab PO BID 7 Days Qty: 14 0RF Continued lisinopril 20 mg tablet 40 mg PO DAILY escitalopram oxalate [Lexapro] 10 mg tablet 10 mg PO DAILY Label Comments: Take 1 tablet by mouth once a day atenolol 100 mg tablet 100 mg PO DAILY Discontinued amlodipine 5 mg tablet 5 mg PO DAILY Follow up/Referrals: Arturo Jiménez MD [Primary Care Provider] - Visit Report/Discharge Packet Instructions: DI for Vertigo Discharge Data Primary Care Provider: Arturo Jiménez
== END 2022-03-15 16:08 | disposition home or self-care (01) | DRG 305 ==
LOC: ED 17:03 → AC 17:17
PROVIDERS: Admitting Provider Family Medicine; Emergency Provider Nurse Practitioner Critical Care Medicine; PCP Family Medicine; Referring Provider Nurse Practitioner Critical Care Medicine; Visit Provider Family Medicine
DX: I16.1 Hypertensive emergency (principal); N30.00 Acute cystitis without hematuria; N13.30 Unspecified hydronephrosis; R11.0 Nausea; I10 Essential (primary) hypertension; F32.A Depression, unspecified; R42 Dizziness and giddiness; R11.2 Nausea with vomiting, unspecified; R07.9 Chest pain, unspecified; Z20.822 Contact with and (suspected) exposure to COVID-19; Z66 Do not resuscitate
CPT/HCPCS: 36415; 70450; 74177; 76705; 80053; 80320; 81003; 81015; 82550; 83605; 83690; 83735; 83880; 84484; 85025; 87077; 87086; 87186; 87635; 93005; 93010; 96361; 96365; 96374; 96375; 96376; 99284; C9803; G0378; J0360; J0696; J1200; J1630; J1650; J1885; J2405; J2765; J3360; Q9967

== ENCOUNTER 2022-03-25 14:12 | Observation (INO) | payer OTHER, SELFPAY ==
[2022-03-14 17:21] VITALS: BMI 33.2
[2022-03-25] VITALS (11 sets, daily range): BP systolic 153–214; BP diastolic 67–96; PULSE 45–60; RESP 18–24; TEMP 36.4–37.1; O2SAT 94–100; BMI 38.9
--- NOTE | 2022-03-25 14:53 | ED_ITS ---
HPI - General Adult General Chief complaint: Dizziness Stated complaint: Dizziness Time Seen by Provider: 03/25/22 14:49 Source: EMS Mode of arrival: EMS History of Present Illness HPI narrative: 71-year-old woman with history of hypertension, depression who was admitted to the emergency department on March 14 with urinary tract infection, hydronephrosis and hypertensive crisis. Blood pressures came no nicely her amlodipine was increased slightly she was treated for the urinary tract infection and discharged home. Her presenting symptoms for that were mild dizziness and general malaise. She was at home today and while sitting and watching TV had the acute onset of severe vertigo. She was concerned that was a similar episode. She has finished all of her antibiotics and is no longer having urinary symptoms. She has been taking all of her blood pressure medications and has been keeping a blood pressure log as well as a diet log. She notes that her blood pressures do very however the average systolic is in the 140 range. In the past she has used meclizine effectively for her vertigo episodes. She was given Zofran by medics which he also found quite effective. By the time I am examining her her symptoms have almost entirely resolved. She is not describing any positional symptoms, describes no tinnitus, fevers, cough, abdominal pain, chest pain, palpitations, flank pain, lower extremity edema. Related Data Home Medications Medication Instructions Recorded Confirmed atenolol 100 mg tablet 100 mg PO DAILY 07/16/18 03/14/22 escitalopram oxalate 10 mg tablet 10 mg PO DAILY 03/14/22 03/14/22 (Lexapro) lisinopril 20 mg tablet 40 mg PO DAILY 03/14/22 03/14/22 Previous Rx's Medication Instructions Recorded amlodipine 5 mg tablet (Norvasc) 10 mg PO DAILY #30 tabs 03/15/22 meclizine 25 mg tablet 25 mg PO QID PRN dizziness #20 tabs 03/25/22 ondansetron 4 mg disintegrating 4 mg PO Q8H PRN nausea and 03/25/22 tablet vomiting #20 tabs Allergies Allergy/AdvReac Type Severity Reaction Status Date / Time Penicillins [PENICILLINS] Allergy Intermediate Verified 03/25/22 14:07 Review of Systems Review of Systems Narrative: Remainder of complete review of systems is otherwise unremarkable except for that included in the HPI. Patient History Medical History (Updated 03/25/22 @ 15:33 by Cassidy Bailon MD) Hypertension Vertigo Surgical History No pertinent past surgical history Social History household members: family Smoking Status: Never smoker Smoking Status: Never smoker alcohol intake frequency: a few times a week Alcohol type: wine Substance Use Type: does not use Exam Initial Vital Signs Initial Vital Signs: Vital Signs Pulse Rate 46 L 03/25/22 14:06 Respiratory Rate 18 03/25/22 14:06 Blood Pressure 189/85 H 03/25/22 14:06 Pulse Oximetry 94 03/25/22 14:06 Oxygen Delivery Method 03/25/22 14:06 General: Healthy appearing, in no acute distress. Able to give a complete and coherent history. Well-nourished well-developed HEENT: Moist mucous membranes, normal sclera with reactive pupils, no nystagmus with positional maneuvers. Neck: No JVD, supple Respiratory: Lungs are clear to auscultation, no wheezing no rales no rhonchi. Full and symmetrical air movement Cardiac: Regular rate and rhythm no murmurs no bruits Abdomen: Soft, nontender, good bowel tones, no flank pain Skin: Warm and dry, no rashes Neurologic: Grossly neurologically intact with no obvious asymmetries or abnormalities Extremities: No trauma, well perfused Psych: Cooperative, appropriate insight and affect Course Orders Ordered: Discontinued Medications Meclizine HCl (Meclizine Hcl 12.5 Mg Tablet) 25 mg PO NOW ONE Stop: 03/25/22 15:22 Vital Signs Vital signs: Vital Signs - 8 hr 03/25/22 14:06 03/25/22 14:27 03/25/22 14:13 Temperature 98.7 F Pulse Rate 46 L Respiratory Rate 18 Blood Pressure 189/85 H 189/85 H Pulse Oximetry 94 Oxygen Delivery Method Room Air 03/25/22 14:13 03/25/22 14:30 Temperature Pulse Rate 45 L 45 L Respiratory Rate 22 Blood Pressure Pulse Oximetry 99 100 Oxygen Delivery Method Medical Decision Making Lab Data Labs: Urine Dip Bedside Urine Glucose Negative Bedside Urine Ketone - Negative Urine Specific [place] 1.010 Bedside Urine Occult Blood - Negative Bedside Urine pH 5.5 Bedside Urine Protein - Negative Bedside Urine Urobilinogen 0.2 Bedside Urine Nitrite - Negative Bedside Urine Leukocytes - Negative Esterase Point of care testing: Urine Dip Bedside Urine Glucose Negative Bedside Urine Ketone - Negative Urine Specific [place] 1.010 Bedside Urine Occult Blood - Negative Bedside Urine pH 5.5 Bedside Urine Protein - Negative Bedside Urine Urobilinogen 0.2 Bedside Urine Nitrite - Negative Bedside Urine Leukocytes - Negative Esterase MDM Narrative Medical decision making narrative: 71-year-old woman comes in with acute episode of vertigo with dramatic onset and fairly quick resolution. At this time she is essentially free of symptoms. Urine is checked and it does appear that her recent urinary tract infection has been adequately treated. We talked about vertigo on appropriate treatments. Will give her prescription for both meclizine and Zofran. At this point I do believe she is safe for home discharge. I encouraged her to continue with all of her blood pressure medications, documenting her blood pressures throughout the day and keeping appointments as scheduled. Currently I am seeing no indication of stroke, sepsis, orthostasis. Persistent urinary tract infection or pyelonephritis, hypertensive crisis or alternative explanation for her resolved vertigo. She is safe for home discharge Discharge Plan Departure Patient Disposition: Home Clinical Impression: Vertigo Instructions: DI for Vertigo Activity Restrictions/Additional Instructions: Thank you for coming in today It sounds like you had an episode of severe vertigo that has lasted about 2-1/2 hours and seems to have resolved. With your exam I am not concerned at this point with your blood pressure being too elevated, acute heart attack, stroke, ear infection, other bacterial infection. You responded well to the Zofran that the medics gave you. I will give you a prescription for this. That helps with the nausea part of the entire episode. I will also give you a prescription for meclizine which helps with the dizzy/pinning part of the episode. You can use them together or whichever 1 seems to be most effective. Prescriptions were electronically transmitted to [facility] for you If you find that you are getting worse or develop any new symptoms, please feel free to return to the emergency department for further evaluation. Prescriptions: New ondansetron 4 mg tablet,disintegrating 4 mg PO Q8H PRN (Reason: nausea and vomiting) Qty: 20 0RF meclizine 25 mg tablet 25 mg PO QID PRN (Reason: dizziness) Qty: 20 0RF No Action lisinopril 20 mg tablet 40 mg PO DAILY escitalopram oxalate [Lexapro] 10 mg tablet 10 mg PO DAILY Label Comments: Take 1 tablet by mouth once a day amlodipine [Norvasc] 5 mg Tablet 10 mg PO DAILY Qty: 30 0RF atenolol 100 mg tablet 100 mg PO DAILY Referrals: Arturo Jiménez MD [Primary Care Provider] -
[2022-03-25] MEDS: MECLIZINE HCL 12.5 MG TABLET 25 MG PO (15:39)
[2022-03-25] MEDS: ONDANSETRON 4 MG ODT SL (16:12)
--- NOTE | 2022-03-25 16:19 | PC.NURSE ---
i attempted to get the patient up and get dressed and ready for discharge. patient reports feeling light headed and dizzy. patient reports nausea. provider notified and ODT roxana ordered. patient put back into bed.
[2022-03-25] MEDS: SODIUM CHLORIDE 0.9% 1,000 ML 1000 ML IV (16:46)
[2022-03-25] MEDS: diphenhydrAMINE 50 MG/ML VIAL 25 MG IV (16:46)
[2022-03-25] MEDS: METOCLOPRAMIDE 10 MG/2 ML INJ IV (16:47)
[2022-03-25 16:48] LABS: Add Manual Diff / Slide Review NO; Basophils Absolute Auto 0 /uL (0-100); Basophils Percent Auto 0.5 % (0-2); Eosinophils Absolute Auto 200 /uL (0-450); Eosinophils Percent Auto 3.3 % (2-4); Hematocrit 43.3 % (36-46); Hemoglobin 14.3 g/dL (12.0-16.0); Lymphocytes Absolute Auto 1700 /uL (1100-4500); Lymphocytes Percent Auto 23.7 % (25-40); Mean Corpuscular Volume 87.9 fL (80-100); Monocytes Absolute Auto 400 /uL (0-900); Neutrophils Absolute Auto 4800 /uL (1500-7000); Neutrophils Percent Auto 66.5 % (50-75); Platelet Count 240 X10^3/uL (150-400); Red Blood Cell Count 4.92 X10^6/uL (4.0-5.2); Red Cell Distribution Width 15.4 % (11.6-14.8); White Blood Cell Count 7.2 X10^3/uL (4.5-11.0)
[2022-03-25 16:54] LABS: Alanine Aminotransferase 22 IU/L (<35); Albumin 4.1 g/dL (3.5-5.0); Albumin Globulin Ratio 1.2 (1.0-2.8); Alkaline Phosphatase 101 U/L (38-126); Aspartate Aminotransferase 27 IU/L (14-36); BUN Creatinine Ratio 17.1 (6-22); Blood Urea Nitrogen 14 mg/dL (7-17); Calcium 9.2 mg/dL (8.4-10.2); Carbon Dioxide 27 mmol/L (22-32); Chloride 103 mmol/L (98-107); Estimated Glomerular Filt Rate > 60 mL/min (>60); Globulin 3.4 g/dL (1.7-4.1); Glucose 106 mg/dL (80-110); HEMOLYSIS 18 (0-50); Potassium 4.5 mmol/L (3.4-5.1); Sodium 137 mmol/L (137-145); Total Protein 7.5 g/dL (6.3-8.2)
--- NOTE | 2022-03-25 16:56 | PC.NURSE ---
Kesha care performed with [place] placed
--- NOTE | 2022-03-25 18:28 | DI.MRI.S_ITS ---
PROCEDURE: MR HEAD/BRAIN WO/W CON INDICATIONS: persistent severe vertigo, being admitted TECHNIQUE: Noncontrast axial T1 spin echo, axial T2 fast spin echo, sagittal and axial FLAIR, coronal T2 fast spin echo, axial gradient echo, axial diffusion and ADC through the brain. After the administration of contrast, axial and coronal and sagittal 3D VIBE or T1 spin echo with fat saturation through the brain. COMPARISON: None. FINDINGS: Image quality: Motion degraded. CSF Spaces: Mild to moderate diffuse volume loss. Basal cisterns are patent. Lateral ventricles are symmetric. Brain: No midline shift. No intracranial bleeds or masses. No abnormal intraparenchymal enhancement. The brainstem appears normal. Diffusion-weighted images demonstrate no acute ischemic insults. No chronic ischemic insults. Normal intravascular flow voids are present. Mild periventricular white matter FLAIR signal, most commonly seen with chronic small vessel disease. There is mild diffuse pachymeningeal enhancement on postcontrast images. Skull and face: Calvarial marrow is normal in signal. Orbits appear normal. Sinuses: Sinuses and mastoids appear clear. IMPRESSION: Mild diffuse enhancement of the pachymeninges, nonspecific, sometimes seen in the setting of low intracranial pressures, among other possibilities. Otherwise, no acute intracranial abnormality identified. Likely chronic volume loss and small vessel ischemic changes. Dictated by: Tj Byrnes M.D. on 03/25/2022 at 20:11 Approved by: Tj Byrnes M.D. on 03/25/2022 at 20:17
[2022-03-25] MEDS: LORazepam 2 MG/ML INJ 0.5 MG IV (18:36)
--- NOTE | 2022-03-25 18:36 | PC.NURSE ---
Called and gave report to Arianna ARRIETA for patient transfer for inpatient observation. Patient is going to diagnostic imaging department for an MRI. After the imaging is complete they will transport patient to their new room.
[2022-03-25 18:39] LABS: COVID19 -Nasal RAPID Negative (Negative)
[2022-03-26 00:57] VITALS: BP 152/64; PULSE 60; RESP 18; TEMP 36.6; O2SAT 97
[2022-03-26 04:48] VITALS: BP 140/66; PULSE 51; RESP 18; TEMP 36.5; O2SAT 98
[2022-03-26 07:34] LABS: Add Manual Diff / Slide Review NO; Basophils Absolute Auto 0 /uL (0-100); Basophils Percent Auto 0.5 % (0-2); Eosinophils Absolute Auto 200 /uL (0-450); Eosinophils Percent Auto 3.5 % (2-4); Hematocrit 43.7 % (36-46); Hemoglobin 14.3 g/dL (12.0-16.0); Lymphocytes Absolute Auto 2100 /uL (1100-4500); Lymphocytes Percent Auto 30.8 % (25-40); Mean Corpuscular HGB Conc 32.6 % (30-36); Mean Corpuscular Hemoglobin 28.7 PG (26-34); Monocytes Absolute Auto 600 /uL (0-900); Monocytes Percent Auto 8.3 % (3-14); Neutrophils Absolute Auto 3900 /uL (1500-7000); Neutrophils Percent Auto 56.9 % (50-75); Platelet Count 246 X10^3/uL (150-400); Red Blood Cell Count 4.97 X10^6/uL (4.0-5.2); White Blood Cell Count 6.9 X10^3/uL (4.5-11.0)
[2022-03-26 07:39] LABS: Alanine Aminotransferase 21 IU/L (<35); Albumin Globulin Ratio 1.2 (1.0-2.8); Alkaline Phosphatase 110 U/L (38-126); Aspartate Aminotransferase 24 IU/L (14-36); BUN Creatinine Ratio 19.7 (6-22); Bilirubin Total 1.1 mg/dL (0.2-1.3); Blood Urea Nitrogen 15 mg/dL (7-17); Calcium 9.2 mg/dL (8.4-10.2); Carbon Dioxide 28 mmol/L (22-32); Chloride 105 mmol/L (98-107); Estimated Glomerular Filt Rate > 60 mL/min (>60); Globulin 3.4 g/dL (1.7-4.1); Glucose 100 mg/dL (80-110); HEMOLYSIS < 15 (0-50); Potassium 4.7 mmol/L (3.4-5.1); Sodium 141 mmol/L (137-145); Total Protein 7.4 g/dL (6.3-8.2)
[2022-03-26 08:10] VITALS: BP 147/59; PULSE 44; RESP 18; TEMP 36.6; O2SAT 99
--- NOTE | 2022-03-26 09:14 | P.HP_ITS ---
History of Present Illness History of Present Illness Date Patient Seen: 03/26/22 Time Patient Seen: 08:40 Date of Onset of Symptoms: 03/25/22 Chief complaint: Dizziness Narrative: Pt reports acute onset of vertigo last night while sitting in chair. Associated with nausea and inability to walk so summoned EMS, did not vomit. Extensive ma nagement in ED and now this morning she feels more or less fine with good appetite. Reports this vertigo was primarily an issue when her eyes were open but she felt better when they were closed. Recent previous presentation for similar without clear etiology so she got MRI this time. At that time her amlodipine was increased to 10mg which she has been compliant with- also reports she has been hydrating heavily with less salt in diet as we discussed in clinic. Patient History Medical History Hypertension Vertigo Surgical History No pertinent past surgical history Family & Social History Social History: household members family Prior Living Arrangements Apartment/Condo Safety & Behavioral: Feels Safe in Current Yes Environment Been Physically Hurt or No Threatened By a Person Tobacco & Substance use: Smoking Status Never smoker alcohol intake current alcohol intake frequency a few times a week Substance Use Type does not use Meds Home Medications and Allergies Home Medications Medication Instructions Recorded Confirmed Type atenolol 100 mg tablet 100 mg PO DAILY 07/16/18 03/25/22 History escitalopram oxalate 10 mg tablet 10 mg PO DAILY 03/14/22 03/25/22 History (Lexapro) lisinopril 20 mg tablet 40 mg PO DAILY 03/14/22 03/25/22 History Lifevantage-Collagen 1 vial PO DAILY collagen 03/25/22 03/25/22 History Lifevantage-Nrf2 1 tab PO DAILY removes oxidated 03/25/22 03/25/22 History stress amlodipine 5 mg tablet (Norvasc) 5 mg PO DAILY 03/25/22 03/25/22 History meclizine 25 mg tablet 25 mg PO QID PRN dizziness #20 tabs 03/25/22 03/25/22 Rx ondansetron 4 mg disintegrating 4 mg PO Q8H PRN nausea and 03/25/22 03/25/22 Rx tablet vomiting #20 tabs Allergies Allergy/AdvReac Type Severity Reaction Status Date / Time Penicillins [PENICILLINS] Allergy Intermediate Hives Verified 03/26/22 11:54 Review of Systems Review of Systems Narrative: all systems reviewed and negative except as otherwise documented in HPI Exam Vital Signs (past 8 hours): - 03/26/22 04:48 03/26/22 08:10 Temperature 97.7 F 97.9 F Pulse Rate 51 L 44 L Respiratory Rate 18 18 Blood Pressure 140/66 147/59 H Pulse Oximetry 98 99 Oxygen Flow Rate 0 0 Oxygen Delivery Method Room Air Oxygen Flow Rate 0 Const General: cooperative, healthy appearing, comfortable and well developed [facility] Head: normocephalic and atraumatic Cardio Other: mildly bradycardic , S1/S2 normal rhythm GI Other: SNTND NBS Skin General: no rashes or lesions noted Neuro General: patient alert, patient awake, patient oriented x3, moves all extremities, deep tendon reflexes 2+ bilaterally and other (normal [place]) Extrem General: normal to inspection and full ROM Psych Appearance: grossly normal Mental Status: mental status grossly normal Objective Labs Result Diagrams: 03/26/22 06:00 03/26/22 06:00 Labs: Laboratory Results - last 24 hr 03/25/22 03/25/22 03/25/22 14:46 14:46 17:55 WBC 7.2 RBC 4.92 Hgb 14.3 Hct 43.3 MCV 87.9 MCH 29.0 MCHC 33.0 RDW 15.4 H Plt Count 240 Neut % (Auto) 66.5 Lymph % (Auto) 23.7 L [place] % (Auto) 6.0 Eos % (Auto) 3.3 Baso % (Auto) 0.5 Neut # (Auto) 4800 Lymph # (Auto) 1700 [place] # (Auto) 400 Eos # (Auto) 200 Baso # (Auto) 0 Sodium 137 Potassium 4.5 Chloride 103 Carbon Dioxide 27 BUN 14 Creatinine 0.82 Estimated GFR > 60 BUN/Creatinine Ratio 17.1 Glucose 106 Calcium 9.2 Total Bilirubin 1.0 AST 27 ALT 22 Alkaline Phosphatase 101 Total Protein 7.5 Albumin 4.1 Globulin 3.4 Albumin/Globulin Ratio 1.2 SARS-CoV-2 (PCR) Negative 03/26/22 03/26/22 06:00 06:00 WBC 6.9 RBC 4.97 Hgb 14.3 Hct 43.7 MCV 88.0 MCH 28.7 MCHC 32.6 RDW 15.0 H Plt Count 246 Neut % (Auto) 56.9 Lymph % (Auto) 30.8 [place] % (Auto) 8.3 Eos % (Auto) 3.5 Baso % (Auto) 0.5 Neut # (Auto) 3900 Lymph # (Auto) 2100 [place] # (Auto) 600 Eos # (Auto) 200 Baso # (Auto) 0 Sodium 141 Potassium 4.7 Chloride 105 Carbon Dioxide 28 BUN 15 Creatinine 0.76 Estimated GFR > 60 BUN/Creatinine Ratio 19.7 Glucose 100 Calcium 9.2 Total Bilirubin 1.1 AST 24 ALT 21 Alkaline Phosphatase 110 Total Protein 7.4 Albumin 4.0 Globulin 3.4 Albumin/Globulin Ratio 1.2 SARS-CoV-2 (PCR) Assessment & Plan Assessment & Plan narrative: #acute vertigo appears resolved this morning will get PT eval with Epifanio workup pls #Hypertension #bradycardia seems controlled, hold atenolol this morning as may be contributing #MDD controlled, continue home lexapro dispo: admit obsv all: PCN code: full PCP: Noemy MDM: son diet: heart healthy dvt: lovenox Time Spent With Patient Critical Care time: I spent a total of [] minutes of critical care time on this patient's care today; this time is exclusive of procedural time. Quality VTE Deep Vein Thrombosis/Pulmonary Embolism Present on Admission: No
[2022-03-26 10:01] VITALS: BP 147/59; PULSE 44
[2022-03-26] MEDS: AMLODIPINE 5 MG TABLET 10 MG PO (10:01)
[2022-03-26] MEDS: ESCITALOPRAM 10 MG TABLET PO (10:01)
[2022-03-26] MEDS: lisinopriL 20 MG TABLET 40 MG PO (10:01)
[2022-03-26] MEDS: ENOXAPARIN 40 MG/0.4 ML SYRINGE SUBCUT (10:02)
--- NOTE | 2022-03-26 11:15 | CM.DANOTE ---
DCP Assessment: Payor confirmed: José PCP confirmed: Arturo Jiménez MD Pt is a 71 y.o. F who presented to the ER with dizziness and N/V. Pt experiencing vertigo. MRI was ordered to rule out brainstem stroke. Pt admitted to the floor for further management and evaluation of her symptoms. Pt met with pt this morning to discuss discharge needs. Pt sitting up in bed. DCP introduced self and role. Pt was here back in February. Pt lives with her family in a Condo in [place]. Pt states her children are mode for transportation. Pt states she has no needs at this time. Dr. Salguero was just in to see pt and pt states that she is work with PT and then discharge later this afternoon. White board updated and instructed to call. Pt thankful for discussion. P: Pt to discharge home via family POV once medically stable. Juli Santillan RN/LEFTY Discharge Planning/Care Management CM Discharge Assessment Start: 03/26/22 11:12 Freq: Status: Active Protocol: Document 03/26/22 11:13 LOBO (Rec: 03/26/22 11:14 LOBO [id number]) Discharge Planning Assessment Assigned Roller Skates Assembler Juli Santillan RN/LEFTY Advance Directives? Yes Advance Directives on File Yes History Provided By Patient Prior Living Arrangements Apartment/Condo Household Members family Independent with ADL's Yes Is patient alert and oriented? Yes Caregiver for Another No Discharge Plan Home Transportation Arrangement family Referrals Initiated None needed Whiteboard Updated in Patient Room with Yes name and ext. # of Roller Skates Assembler Comment Instructed to call if needed Review Status In Process Please Provide Date Initial DC 03/26/22 Assessment Was Performed Next Review Type Continued Stay Review
--- NOTE | 2022-03-26 11:43 | PT.IIE ---
Surgical History (Last Reviewed 03/26/22 @ 09:16 by Carlin Salguero MD) No pertinent past surgical history Medical History (Last Reviewed 03/26/22 @ 09:16 by Carlin Salguero MD) Hypertension Vertigo Physical Therapy Inpatient Evaluation/Re-Eval M1 PT/OT-IP Prior Functional Status Start: 03/26/22 13:35 Freq: NEEDED Status: Active Protocol: Document 03/26/22 11:43 AB (Rec: 03/26/22 14:03 AB [id number]) Medical Review Prior Functional Status Medical History Reviewed Yes Communication able to make needs known Mobility and Gait pt stated that she is independent with all mobilities and ambulation without AD Social History Household Members family Living Arrangements Apartment/Condo Number of Floors (Floors) Two Floors Number of Stairs To Enter/Railing? no steps to enter pt usually stays on the first level but has to go upstairs for her shower: 7 steps R rail /L wall +landing+7 steps L rail/R wall Home Environment High Toilet,Tub/Shower Home Equipment Hand Held Shower,Grab Bars Near Toilet Additional Social History Comment pt stated that she sleeps on a recliner M2 PT-IP Current Condition Start: 03/26/22 13:35 Freq: NEEDED Status: Active Protocol: Document 03/26/22 11:43 AB (Rec: 03/26/22 14:03 AB [id number]) Physical Therapy Current Condition Current Condition Evaluation Date 03/26/22 Treatment Diagnosis dizziness; difficulty in walking Onset Date 03/25/22 M3 PT-IP Subjective Start: 03/26/22 13:35 Freq: NEEDED Status: Active Protocol: Document 03/26/22 11:43 AB (Rec: 03/26/22 14:03 AB [id number]) Subjective Physical Therapy Visit Type Type Initial Evaluation Visit Start Time 11:43 Visit Stop Time 12:17 Total Visit Minutes 34 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 Physical Therapy Visit Comments Patient Comments agreeable to do PT M4 PT-IP Mobility and Gait Start: 03/26/22 13:35 Freq: NEEDED Status: Active Protocol: Document 03/26/22 11:43 AB (Rec: 03/26/22 14:03 AB [id number]) PT-Bed Mobility Assessment Supine to Sit Supine to Sit Independent Sit to Supine Sit to Supine Independent PT-Transfer Assessment Sit to and From Stand Sit to and from Stand Standby Assistance Equipment Transfer Assistive Device None,Gait Belt Orthotic/Prosthetic Devices or Brace: No Transfers Transfer Destination Bed,Chair Transfer Technique ambulated Transfer Ability Level of Assist Standby Assistance,Contact Guard Assistance,1 Person Assistance,Use of Upper Extremities Comments Mobility Comments pt completed supine to sit independent. completed sit to stand SBA and ambulated to the chair without AD SBA to CGA. (+) LOB. pt presents with antalgic gait; increase trunk lateral lean to the L with increase R pelvic elevation contributing to antalgic gait. pt with chronic LBP. educated pt on safety. assessed ambulation using SPC. educated on use of SPC and ambulated in room ~ 30 ft SBA. pt presents with more stable and less antalgic gait. pt stated that she will be able to get a SPC. completed up/down step stool using 1 rail and SPC initial CGA but after educated on how to use SPC, able to complete SBA. also completed up/down steps holding on to 1 rail with B hand SBA. pt requested to use the toilet and ambulated to the toilet using SPC SBA. Left pt with call light within reach. Gait Assessment Gait Gait Assistance Required: Standby Assistance,Contact Guard Assist Distance (Feet) 30 Able to Maintain Weight Bearing Status Yes During Gait Assistive Devices Assistive Device None,Gait Belt,Straight Cane Orthotic/Prosthetic Devices or Brace: No Gait Deviations General Gait Pattern Antalgic,Decreased Stride Length,Decreased Feet Clearance Factors Limiting Gait Function Factors Limiting Gait Function Decreased Activity Tolerance, Decreased Strength,Poor Balance,Poor Safety Awareness Stair Climbing Assessment Evaluation Level of Assist On Stairs Standby Assistance,Contact Guard Assistance Devices Stair Climbing Assistive Devices Left Railing,Right Railing Comments Stair Climbing Comments pls refer to mobility section for details PT-Balance Assessment Sitting Balance and Reactions Static Sitting Balance Ability Normal Dynamic Sitting Balance Ability Good Standing Balance and Reactions Static Standing Balance Ability Good Dynamic Standing Balance Ability Fair Device Used without AD M5 PT-IP Objective Assessments Start: 03/26/22 13:35 Freq: NEEDED Status: Active Protocol: Document 03/26/22 11:43 AB (Rec: 03/26/22 14:03 AB [id number]) Orientation Orientation/Cognition Level of Alertness Alert Orientation Name,Place,Situation Language Function Ability No Deficits Noted Safety Awareness Understands Safety Issues Memory Description No Deficits Noted Gross Range of Motion Lower Extremity ROM Assessment Within Functional Limits Strength Lower Extremity Strength Assessment Within Functional Limits Sensation Assessment Sensation Gross Sensation WNL Muscle Tone Muscle Tone WNL Yes M6 PT-IP Treatment Start: 03/26/22 13:35 Freq: NEEDED Status: Active Protocol: Document 03/26/22 11:43 AB (Rec: 03/26/22 14:03 AB [id number]) Physical Therapy Treatment Education Education Provided Safety M7 PT-IP Assessment and Plan Start: 03/26/22 13:35 Freq: NEEDED Status: Active Protocol: Document 03/26/22 11:43 AB (Rec: 03/26/22 14:03 AB [id number]) PT Summary Assessment and Plan Potential Rehabilitation Potential Good Status of Condition at Evaluation Stable Summary Impairments Pain,ROM,Strength,Balance, Coordination,Sensation,Tone, Cognition,Bed Mobility, Transfers,Gait,Activity Tolerance Assessment Summary pt without c/o dizziness and stated that she feels better. pt has previous admission due to dizziness/vertigo. per MD 's recommendation is to conduct Epifanio's maneuver. Assessed pt's mobility and recommending pt going to outpt PT for more thorough vestibular assessment on an outpt basis. informed pt and pt agreed. pt requiring SBA to CGA with mobility and recommending use of SPC for stability and safety. pt agreed to use SPC. pt plans to go home and will have her family to assist her as needed . will continue to assess progress. Goals Transfer Goal Independent Gait Goal Independent Gait Distance 200 Other Goals up/down 15 steps 1 rail mod I Days to Meet Goals 5 Frequency of Treatment Frequency Of Treatment Once a Day Treatment Plan Physical Therapy Treatment Plan Bed Mobility Training,Transfer Training,Gait Training, Therapeutic Exercise,Balance Retraining,Discharge Planning, Hot or Cold Pack,Neuromuscular Re-ed,Coordination Retraining Recommendations To Nursing Amount of Assist Needed Standby Assistance Discharge Recommendations PT Discharge Recommendations Home with Assistance, Outpatient PT Transportation Needs at Discharge Private Vehicle
[2022-03-26 12:56] VITALS: BP 115/53; PULSE 44; RESP 18; TEMP 36.7; O2SAT 98
--- NOTE | 2022-03-26 15:12 | P.DS_ITS ---
History of Present Illness History of Present Illness Date Patient Seen: 03/26/22 Time Patient Seen: 15:12 Date of Onset of Symptoms: 03/25/22 Chief complaint: Dizziness Narrative: Pt reports acute onset of vertigo last night while sitting in chair. Associated with nausea and inability to walk so summoned EMS, did not vomit. Extensive ma nagement in ED and now this morning she feels more or less fine with good appetite. Reports this vertigo was primarily an issue when her eyes were open but she felt better when they were closed. Recent previous presentation for similar without clear etiology so she got MRI this time. At that time her amlodipine was increased to 10mg which she has been compliant with- also reports she has been hydrating heavily with less salt in diet as we discussed in clinic. Discharge Providers Provider Date of admission: 03/25/22 18:11 Discharge Date: 03/26/22 Primary care physician: Arturo Jiménez MD Consults: 03/26/22 09:11 Consult to Physical Therapy Evaluate & Treat Comment: include Epifanio maneuver in eval pls Physician Instructions: Evaluate and Treat Discharge provider: Carlin Salguero MD Summary Hospital Course Discharge Diagnosis: #acute vertigo #Hypertension #bradycardia #MDD Hospital Course: Ms. Gutierrez was admitted for management of acute vertigo woith sudden onset. Although her symptoms improved no clear etiology could be established to explain her symptoms. A bradycardia was noted which persisted despite resolution of subjective symptoms. She was able to ambulate stably and take in good nutrition. She will go home to / as outpatient with vestibular workup. Exam Vital Signs (past 8 hours): - 03/26/22 08:10 03/26/22 10:01 03/26/22 12:56 Temperature 97.9 F 98.0 F Pulse Rate 44 L 44 L 44 L Respiratory Rate 18 18 Blood Pressure 147/59 H 147/59 H 115/53 L Pulse Oximetry 99 98 Oxygen Flow Rate 0 0 Oxygen Delivery Method Room Air Oxygen Flow Rate 0 Const General: cooperative, healthy appearing and comfortable Resp Auscultation: clear to auscultation bilaterally Cardio Rate: bradycardic Rhythm: regular rhythm Heart Sounds: S1 normal and S2 normal GI Auscultation: normal bowel sounds Skin General: no rashes or lesions noted Neuro General: patient alert, patient awake, patient oriented x3, gait normal, tone normal, moves all extremities and CN's II-XI intact bilaterally Extrem General: full ROM and no pedal edema Psych Mental Status: mental status grossly normal Speech and Movement: speech and movement normal Objective Labs Result Diagrams: 03/26/22 06:00 03/26/22 06:00 Labs: Laboratory Results - last 24 hr 03/25/22 03/25/22 03/25/22 14:46 14:46 17:55 WBC 7.2 RBC 4.92 Hgb 14.3 Hct 43.3 MCV 87.9 MCH 29.0 MCHC 33.0 RDW 15.4 H Plt Count 240 Neut % (Auto) 66.5 Lymph % (Auto) 23.7 L [place] % (Auto) 6.0 Eos % (Auto) 3.3 Baso % (Auto) 0.5 Neut # (Auto) 4800 Lymph # (Auto) 1700 [place] # (Auto) 400 Eos # (Auto) 200 Baso # (Auto) 0 Sodium 137 Potassium 4.5 Chloride 103 Carbon Dioxide 27 BUN 14 Creatinine 0.82 Estimated GFR > 60 BUN/Creatinine Ratio 17.1 Glucose 106 Calcium 9.2 Total Bilirubin 1.0 AST 27 ALT 22 Alkaline Phosphatase 101 Total Protein 7.5 Albumin 4.1 Globulin 3.4 Albumin/Globulin Ratio 1.2 SARS-CoV-2 (PCR) Negative 03/26/22 03/26/22 06:00 06:00 WBC 6.9 RBC 4.97 Hgb 14.3 Hct 43.7 MCV 88.0 MCH 28.7 MCHC 32.6 RDW 15.0 H Plt Count 246 Neut % (Auto) 56.9 Lymph % (Auto) 30.8 [place] % (Auto) 8.3 Eos % (Auto) 3.5 Baso % (Auto) 0.5 Neut # (Auto) 3900 Lymph # (Auto) 2100 [place] # (Auto) 600 Eos # (Auto) 200 Baso # (Auto) 0 Sodium 141 Potassium 4.7 Chloride 105 Carbon Dioxide 28 BUN 15 Creatinine 0.76 Estimated GFR > 60 BUN/Creatinine Ratio 19.7 Glucose 100 Calcium 9.2 Total Bilirubin 1.1 AST 24 ALT 21 Alkaline Phosphatase 110 Total Protein 7.4 Albumin 4.0 Globulin 3.4 Albumin/Globulin Ratio 1.2 SARS-CoV-2 (PCR) [facility] Medical History Hypertension Vertigo Surgical History No pertinent past surgical history Social History household members: family Smoking Status: Never smoker alcohol intake: current Discharge Assessment & Plan Assessment and Plan Assessment: #acute vertigo appears resolved this morning - per PT will need vestibular workup as outpatient MRI negative #Hypertension #bradycardia seems controlled, continue to hold atenolol on d/c as bradycardia persists and may certainly contribute. #MDD controlled, continue home lexapro time spent on discharge: 40 min Discharge Plan Discharge Plan Patient Disposition: Home Discharge orders & Medications Prescriptions: New ondansetron 4 mg tablet,disintegrating 4 mg PO Q8H PRN (Reason: nausea and vomiting) Qty: 20 0RF meclizine 25 mg tablet 25 mg PO QID PRN (Reason: dizziness) Qty: 20 0RF Continued lisinopril 20 mg tablet 40 mg PO DAILY escitalopram oxalate [Lexapro] 10 mg tablet 10 mg PO DAILY Label Comments: Take 1 tablet by mouth once a day atenolol 100 mg tablet 100 mg PO DAILY amlodipine [Norvasc] 5 mg tablet 5 mg PO DAILY Lifevantage-Collagen bottle 1 vial PO DAILY Lifevantage-Nrf2 tablet 1 tab PO DAILY Medication counseling provided by Pharmacist: Yes Follow up/Referrals: Arturo Jiménez MD [Primary Care Provider] - Visit Report/Discharge Packet Instructions: DI for Vertigo Discharge Data Primary Care Provider: Arturo Jiménez Attending Provider: Carlin Salguero Quality VTE Deep Vein Thrombosis/Pulmonary Embolism Present on Admission: No
--- NOTE | 2022-03-26 17:38 | PC.NURSE ---
Pt is A&Ox3, VSS, afebrile. HR 44's on telemetry but MD aware and pt is asymptomatic. She is able to independently ambulate to the BR. She is cleared for discharge today after PT and EKG completed. She verbalizes understanding of discharge medications (stopping the atenolol) and following up this week with her PCP MD Salguero per recommendations. She is escorted via w/ch to private vehicle with son with all of her belongings after dinner at 1733 this evening.
== END 2022-03-26 17:33 | disposition home or self-care (01) ==
LOC: ED 16:54 → AC 18:28
PROVIDERS: Family Medicine; Admitting Provider Family Medicine; Emergency Provider Emergency Medicine; PCP Family Medicine; Visit Provider Family Medicine
DX: R42 Dizziness and giddiness (principal); R00.1 Bradycardia, unspecified; I10 Essential (primary) hypertension; F32.A Depression, unspecified; Z20.822 Contact with and (suspected) exposure to COVID-19
CPT/HCPCS: 36415; 70553; 80053; 81003; 85025; 87635; 93005; 96361; 96372; 96374; 96375; 97161; 99284; C9803; G0378; J1200; J1650; J2060; J2765

== ENCOUNTER 2022-04-20 07:23 | Emergency (ER) | payer OTHER, SELFPAY ==
[2022-03-25 18:23] VITALS: BMI 38.9
[2022-04-20] VITALS (11 sets, daily range): BP systolic 157–194; BP diastolic 70–103; PULSE 62–75; RESP 13–21; TEMP 36.6; O2SAT 96–100; BMI 39.3
--- NOTE | 2022-04-20 07:38 | ED.NEUROSD ---
HPI - Neuro Symptoms/Deficit General Chief Complaint: Dizziness Stated Complaint: vertigo Time Seen by Provider: 04/20/22 07:30 Source: patient Mode of arrival: Ambulatory History of Present Illness HPI Narrative: 71-year-old woman with history of hypertension, depression, and known vertigo presents by EMS for evaluation of significant symptoms that started this morning. She states she went to bed in her normal state of health but upon getting out of bed this morning developed twitching of her eyes and the sensation that the room was spinning. Any time she moves her head these symptoms become intense. She states it improves if she sits still or closes her eyes. She denies any recent head or neck injury or trauma. She denies any headache, blurred vision, trouble with speech or numbness, tingling or weakness of her extremities. She denies any chest pain or shortness of breath. She is significantly nauseated and tried taking her meclizine this morning but vomited it up. She was given Phenergan 12.5 mg by EMS with some improvement. She denies any new medications or dietary change. On Anticoagulants: No Related Data Home Medications Medication Instructions Recorded Confirmed atenolol 100 mg tablet 100 mg PO DAILY 07/16/18 03/25/22 escitalopram oxalate 10 mg tablet 10 mg PO DAILY 03/14/22 03/25/22 (Lexapro) lisinopril 20 mg tablet 40 mg PO DAILY 03/14/22 03/25/22 Lifevantage-Collagen 1 vial PO DAILY collagen 03/25/22 03/25/22 Lifevantage-Nrf2 1 tab PO DAILY removes oxidated 03/25/22 03/25/22 stress amlodipine 5 mg tablet (Norvasc) 5 mg PO DAILY 03/25/22 03/25/22 Previous Rx's Medication Instructions Recorded meclizine 25 mg tablet 25 mg PO QID PRN dizziness #20 tabs 03/25/22 ondansetron 4 mg disintegrating 4 mg PO Q8H PRN nausea and 03/25/22 tablet vomiting #20 tabs ondansetron 4 mg disintegrating 4 mg PO Q4H PRN nausea and 04/20/22 tablet vomiting 4 days #10 tabs Allergies Allergy/AdvReac Type Severity Reaction Status Date / Time Penicillins [PENICILLINS] Allergy Intermediate Hives Verified 03/26/22 11:54 Review of Systems Review of Systems Narrative: GENERAL: See HPI HEENT: Denies sinus pain, ear pain, sore throat, difficulty swallowing, dizziness. RESPIRATORY: Denies dyspnea, cough, wheezing, hemoptysis, sputum. CARDIOVASCULAR: See HPI GASTROINTESTINAL: See HPI : Denies dysuria, frequency, incontinence, hematuria, urinary retention. MUSCULOSKELETAL: denies weakness, joint pain, or bony pain SKIN: Denies rash, skin lesions, or other NEUROLOGIC: See HPI PSYCHIATRIC: No concerning psychosocial issues. 12 point review of systems is negative except for those stated above Hematologic/Lymphatic On Anticoagulants: No Patient History Medical History Hypertension Vertigo Surgical History No pertinent past surgical history Social History household members: family Smoking Status: Never smoker alcohol intake: current Smoking Status: Never smoker alcohol intake frequency: a few times a week Alcohol type: wine Substance Use Type: does not use Exam Narrative Exam Narrative: GENERAL: [71] year old patient appears stated age. Well-developed patient, in mild distress. Eyes closed, holding an emesis bag HEAD: Atraumatic. Normocephalic. EYES: Pupils equal round and reactive. Extraocular motions intact. No scleral icterus. No injection or drainage. Had motion results and fast which nystagmus to the left ENT: Nose without bleeding, purulent drainage. Throat without erythema, tonsillar hypertrophy or exudate. Airway patent. NECK: Trachea midline. Non tender CARDIOVASCULAR: Regular rate and rhythm without murmurs, gallops, or rubs. RESPIRATORY: Clear to auscultation. Breath sounds equal bilaterally. No wheezes, rales, or rhonchi. GASTROINTESTINAL: Abdomen soft, non-tender, nondistended. EXTREMITIES: No edema or joint tenderness. BACK: Nontender without deformity or crepitance. No flank tenderness. NEURO: AOx3. SKIN: No rash or erythema of visible areas NIH Stroke Scale 1a. LOC: Patient is alert and keenly responsive (0) 1b. LOC Questions: Patient answers both LOC questions accurately (0) 1c. LOC Commands: Patient performs both tasks correctly (0) 2. Best Gaze: Normal (0) 3. Visual: No visual loss (0) 4. Facial palsy: Normal symmetrical movements (0) 5. Motor arm: No drift (0) 6. Motor leg: No drift (0) 7. Limb ataxia: Absent (0) 8. Sensory: Normal (0) 9. Best language: No aphasia; normal (0) 10. Dysarthria: Normal (0) 11. Extinction and inattention: No abnormality (0) NIHSS: 0 Initial Vital Signs Initial Vital Signs: Vital Signs Temperature 98 F 04/20/22 07:35 Pulse Rate 65 04/20/22 07:35 Respiratory Rate 18 04/20/22 07:35 Blood Pressure 183/91 H 04/20/22 07:35 Pulse Oximetry 98 04/20/22 07:35 Oxygen Delivery Method 04/20/22 07:35 Course Orders Ordered: Discontinued Medications Amlodipine Besylate (Amlodipine 5 Mg Tablet) 5 mg PO NOW ONE Stop: 04/20/22 10:15 Last Admin: 04/20/22 10:29 Dose: 5 mg Documented By: RENARD Sodium Chloride (Normal Saline 0.9%) 1,000 mls @ 1,000 mls/hr IV BOLUS ONE Stop: 04/20/22 08:39 Last Infusion: 04/20/22 09:40 Dose: 0 mls/hr Documented By: Admin: 04/20/22 08:32 Dose: 1,000 mls/hr Documented By: RENARD(2) Lisinopril (Lisinopril 20 Mg Tablet) 20 mg PO NOW ONE Stop: 04/20/22 10:15 Last Admin: 04/20/22 10:29 Dose: 20 mg Documented By: RENARD Meclizine HCl (Meclizine Hcl 12.5 Mg Tablet) 50 mg PO NOW ONE Stop: 04/20/22 07:41 Last Admin: 04/20/22 08:31 Dose: 50 mg Documented By: RENARD(2) Ondansetron HCl (Ondansetron 4 Mg/2 Ml Inj) 4 mg IV NOW ONE Stop: 04/20/22 07:41 Last Admin: 04/20/22 08:31 Dose: 4 mg Documented By: RENARD(2) Vital Signs Vital signs: Vital Signs - 8 hr 04/20/22 10:29 04/20/22 10:30 04/20/22 10:31 Pulse Rate 67 63 Respiratory Rate 13 Blood Pressure 189/103 H 159/70 H Pulse Oximetry 100 04/20/22 10:31 04/20/22 11:00 04/20/22 11:00 Pulse Rate 62 64 Respiratory Rate 18 13 Blood Pressure 160/74 H Pulse Oximetry 100 96 04/20/22 11:30 04/20/22 11:30 Pulse Rate 68 Respiratory Rate 15 Blood Pressure 166/75 H Pulse Oximetry 97 MDM - Neuro Symptoms/Deficit Lab Data Result diagrams: 04/20/22 07:10 04/20/22 07:10 Labs: Lab Results 04/20/22 04/20/22 Range/Units 07:10 07:10 WBC 7.2 (4.5-11.0) X10^3/uL RBC 5.07 (4.0-5.2) X10^6/uL Hgb 14.6 (12.0-16.0) g/dL Hct 43.6 (36-46) % MCV 86.0 (80-100) fL MCH 28.8 (26-34) PG MCHC 33.5 (30-36) % RDW 14.6 (11.6-14.8) % Plt Count 265 (150-400) X10^3/uL Neut % (Auto) 41.9 L (50-75) % Lymph % (Auto) 48.2 H (25-40) % [place] % (Auto) 5.2 (3-14) % Eos % (Auto) 3.7 (2-4) % Baso % (Auto) 1.0 (0-2) % Neut # (Auto) 3000 (2726-7131) /uL Lymph # (Auto) 3500 (9501-4853) /uL [place] # (Auto) 400 (0-900) /uL Eos # (Auto) 300 (0-450) /uL Baso # (Auto) 100 (0-100) /uL Sodium 140 (137-145) mmol/L Potassium 3.9 (3.4-5.1) mmol/L Chloride 104 (98-107) mmol/L Carbon Dioxide 27 (22-32) mmol/L BUN 10 (7-17) mg/dL Creatinine 0.66 (0.52-1.04) mg/dL Estimated GFR > 60 (>60) mL/min BUN/Creatinine Ratio 15.2 (6-22) Glucose 112 H (80-110) mg/dL Calcium 9.6 (8.4-10.2) mg/dL Total Bilirubin 0.9 (0.2-1.3) mg/dL AST 26 (14-36) IU/L ALT 21 (<35) IU/L Alkaline Phosphatase 142 H (38-126) U/L Total Creatine Kinase 36 (30-135) U/L CK-MB (CK-2) TNP CK-MB (CK-2) Rel Index TNP Troponin I < 0.012 (0.01-0.034) ng/mL Total Protein 8.2 (6.3-8.2) g/dL Albumin 4.3 (3.5-5.0) g/dL Globulin 3.9 (1.7-4.1) g/dL Albumin/Globulin Ratio 1.1 (1.0-2.8) MDM Narrative Medical decision making narrative: Patient has a very reassuring history and physical exam was significant improvement typical therapies for peripheral vertigo. Other potential diagnoses considered including stroke, anemia, electrolyte abnormality but thought unlikely given history, physical and labs. She is given return precautions and questions answered to her apparent satisfaction Discharge Plan Departure Patient Disposition: Home Clinical Impression: Vertigo Instructions: DI for Vertigo Activity Restrictions/Additional Instructions: *You have been diagnosed with [peripheral vertigo. As we discussed your history and physical exam as well as response to therapies is very reassuring.] *What to do: *Please continue to take your regular medications as directed. [x ] New medication prescriptions sent to your pharmacy: [[facility] ] [ ] New medication written as a paper prescription [ ] No new medications given *Please follow up with your primary care provider in 2-3 days, call for an appointment. Let them know you were seen in the Emergency Department and that we ask that you be seen in follow up. We will electronically transmit a record of today's note if your PCP is in our system * as we discussed I have given you contact information for [facility]. Please contact them and let them know you were seen in the emergency department and we would like you seen in follow-up. I can not do an official referral or schedule this appointment for you but this should help. I will electronically transmitted a note on your behalf to their office *Return to Emergency Department if you should have any new, worsening or concerning symptoms, such as [fever greater than 101 F, shaking chills, worsening pain, persistent vomiting or other bothersome symptoms] Prescriptions: New ondansetron 4 mg tablet,disintegrating 4 mg PO Q4H PRN (Reason: nausea and vomiting) 4 Days Qty: 10 0RF No Action lisinopril 20 mg tablet 40 mg PO DAILY escitalopram oxalate [Lexapro] 10 mg tablet 10 mg PO DAILY Label Comments: Take 1 tablet by mouth once a day atenolol 100 mg tablet 100 mg PO DAILY ondansetron 4 mg tablet,disintegrating 4 mg PO Q8H PRN (Reason: nausea and vomiting) Qty: 20 0RF meclizine 25 mg tablet 25 mg PO QID PRN (Reason: dizziness) Qty: 20 0RF amlodipine [Norvasc] 5 mg tablet 5 mg PO DAILY Lifevantage-Collagen bottle 1 vial PO DAILY Lifevantage-Nrf2 tablet 1 tab PO DAILY Referrals: Carlin Salguero MD [Primary Care Provider] - Visit Report Forms: Patient Portal/API
[2022-04-20 07:50] LABS: Add Manual Diff / Slide Review NO; Basophils Absolute Auto 100 /uL (0-100); Eosinophils Absolute Auto 300 /uL (0-450); Eosinophils Percent Auto 3.7 % (2-4); Hematocrit 43.6 % (36-46); Hemoglobin 14.6 g/dL (12.0-16.0); Lymphocytes Absolute Auto 3500 /uL (1100-4500); Lymphocytes Percent Auto 48.2 % (25-40); Mean Corpuscular HGB Conc 33.5 % (30-36); Mean Corpuscular Hemoglobin 28.8 PG (26-34); Monocytes Absolute Auto 400 /uL (0-900); Monocytes Percent Auto 5.2 % (3-14); Neutrophils Absolute Auto 3000 /uL (1500-7000); Neutrophils Percent Auto 41.9 % (50-75); Platelet Count 265 X10^3/uL (150-400); Red Blood Cell Count 5.07 X10^6/uL (4.0-5.2); Red Cell Distribution Width 14.6 % (11.6-14.8); White Blood Cell Count 7.2 X10^3/uL (4.5-11.0)
[2022-04-20 07:55] LABS: Alanine Aminotransferase 21 IU/L (<35); Albumin 4.3 g/dL (3.5-5.0); Albumin Globulin Ratio 1.1 (1.0-2.8); Alkaline Phosphatase 142 U/L (38-126); Aspartate Aminotransferase 26 IU/L (14-36); BUN Creatinine Ratio 15.2 (6-22); Bilirubin Total 0.9 mg/dL (0.2-1.3); Blood Urea Nitrogen 10 mg/dL (7-17); Calcium 9.6 mg/dL (8.4-10.2); Carbon Dioxide 27 mmol/L (22-32); Chloride 104 mmol/L (98-107); Creatine Kinase 36 U/L (30-135); Estimated Glomerular Filt Rate > 60 mL/min (>60); Globulin 3.9 g/dL (1.7-4.1); Glucose 112 mg/dL (80-110); HEMOLYSIS < 15 (0-50); Potassium 3.9 mmol/L (3.4-5.1); Sodium 140 mmol/L (137-145); Total Protein 8.2 g/dL (6.3-8.2)
[2022-04-20 08:06] LABS: Troponin I < 0.012 ng/mL (0.01-0.034)
[2022-04-20] MEDS: ONDANSETRON 4 MG/2 ML INJ IV (08:31)
[2022-04-20] MEDS: MECLIZINE HCL 12.5 MG TABLET 50 MG PO (08:31)
[2022-04-20] MEDS: SODIUM CHLORIDE 0.9% 1,000 ML 1000 ML IV (08:32)
[2022-04-20] MEDS: lisinopriL 20 MG TABLET PO (10:29)
[2022-04-20] MEDS: AMLODIPINE 5 MG TABLET PO (10:29)
== END 2022-04-20 12:19 | disposition home or self-care (01) ==
PROVIDERS: Emergency Provider Emergency Medicine; PCP Family Medicine
DX: R42 Dizziness and giddiness (principal); R11.2 Nausea with vomiting, unspecified
CPT/HCPCS: 80053; 82550; 84484; 85025; 93005; 96361; 96374; 99284; J2405

== ENCOUNTER 2022-04-24 09:31 | Emergency (ER) | payer OTHER, SELFPAY ==
[2022-03-25 18:23] VITALS: BMI 38.9
[2022-04-24] VITALS (20 sets, daily range): BP systolic 156–196; BP diastolic 78–128; PULSE 58–74; RESP 14–35; TEMP 36.9; O2SAT 94–100
--- NOTE | 2022-04-24 09:43 | DI.RAD.S_ITS ---
PROCEDURE: XR CHEST 1V INDICATIONS: chest pain TECHNIQUE: One view of the chest was acquired. COMPARISON: [facility], CT, CT ABDOMEN PELVIS W CON, 03/14/2022, 14:22. [facility], CR, XR CHEST 1V, 11/30/2018, 8:14. [facility], CR, CHEST 1 VIEW, 04/12/2017, 10:19. FINDINGS: Surgical changes and devices: Densities projecting over the left chest. Lungs and pleura: Lungs are clear. No pleural effusions or pneumothorax. Mediastinum: Mediastinal contours appear normal. Heart size is normal. Bones and chest wall: No suspicious bony lesions. Overlying soft tissues appear unremarkable. IMPRESSION: No acute cardiopulmonary abnormality. Dictated by: Serjio Daugherty M.D. on 04/24/2022 at 9:15 Approved by: Serjio Daugherty M.D. on 04/24/2022 at 9:16
--- NOTE | 2022-04-24 10:09 | ED.DIZZY ---
HPI - Dizziness General Chief Complaint: Dizziness Stated Complaint: vertigo Time Seen by Provider: 04/24/22 10:08 Source: patient Mode of arrival: EMS Limitations: no limitations History of Present Illness HPI Narrative: Patient arrives by EMS with severe dizziness. Symptoms exacerbated 30 minutes prior to arrival here. She vomited meclizine. She is ongoing nausea, significant dizziness with head motion. She is been experienced dizziness for about 2 months. She was admitted about 6 weeks ago with hypertension, UTI, and intermittent vertigo. She was here again 4 days ago with vertigo. She improved with Zofran and meclizine at that time. Head CT at the time of admission is February showed no acute findings. Brain MRI 03/25/2022 revealed mild diffuse enhancement of the pachymeninges, it was noted this may be from low intracranial pressure. MR report also suggested chronic volume loss and small vessel ischemic changes. There was no evidence of CVA. There were no acute findings. Patient has mild sinus congestion. She is no ear pain or discharge. She denies sore throat, headache, cough or fever. She is no palpitations, chest pain, or dyspnea. She is no history of arrhythmia. Related Data Home Medications Medication Instructions Recorded Confirmed atenolol 100 mg tablet 100 mg PO DAILY 07/16/18 03/25/22 escitalopram oxalate 10 mg tablet 10 mg PO DAILY 03/14/22 03/25/22 (Lexapro) lisinopril 20 mg tablet 40 mg PO DAILY 03/14/22 03/25/22 Lifevantage-Collagen 1 vial PO DAILY collagen 03/25/22 03/25/22 Lifevantage-Nrf2 1 tab PO DAILY removes oxidated 03/25/22 03/25/22 stress amlodipine 5 mg tablet (Norvasc) 5 mg PO DAILY 03/25/22 03/25/22 Previous Rx's Medication Instructions Recorded meclizine 25 mg tablet 25 mg PO QID PRN dizziness #20 tabs 03/25/22 ondansetron 4 mg disintegrating 4 mg PO Q8H PRN nausea and 03/25/22 tablet vomiting #20 tabs Allergies Allergy/AdvReac Type Severity Reaction Status Date / Time Penicillins [PENICILLINS] Allergy Intermediate Hives Verified 03/26/22 11:54 Review of Systems Review of Systems ROS Unobtainable: All systems reviewed & are unremarkable except as noted in HPI and below Constitutional Constitutional: Denies chills, Denies fatigue, Denies fever(s), Denies frequent falls, Denies headache(s) and Denies weakness Comments: No recent illness. Eyes Eyes: Denies blurry vision, Denies change in vision and Denies eye discharge ENT Ears, Nose, Mouth, and Throat: Reports vertigo, Denies dry mouth, Denies ear discharge, Denies otalgia, Denies headache(s), Denies lip swelling and Denies sore throat Cardiovascular Cardiovascular: Denies chest pain, Denies syncope, Denies pedal edema, Denies edema and Denies irregular heart rhythm Respiratory Respiratory: Denies chest congestion and Denies cough Gastrointestinal Gastrointestinal: Denies abdominal pain, Reports nausea and Reports vomiting Genitourinary Genitourinary: Denies dysuria Musculoskeletal Musculoskeletal: Denies back pain and Denies myalgias Integumentary/Breasts Skin/Breast: Denies lesions and Denies rash Neurologic Neurologic: Denies abnormal speech, Denies confusion, Reports vertigo, Denies syncope, Denies frequent falls, Denies headache(s) and Denies weakness Psychiatric Psychiatric: Denies anxiety and Denies confusion Endocrine Endocrine: Denies fatigue Hematologic/Lymphatic On Anticoagulants: No Allergic/Immunologic Allergic/Immunologic: Denies urticaria and Denies lip swelling Patient History Medical History Hypertension Vertigo Surgical History No pertinent past surgical history Social History household members: family Smoking Status: Never smoker alcohol intake: current Smoking Status: Never smoker alcohol intake frequency: a few times a week Alcohol type: wine Substance Use Type: does not use Exam Initial Vital Signs Initial Vital Signs: Vital Signs Pulse Rate 74 04/24/22 09:42 Pulse Oximetry 99 04/24/22 09:42 Const General: cooperative, comfortable, well developed, well groomed and other (Dizzy with the slightest head motion.) Orientation: Orientation (Normal) [facility] Head: normal to inspection, normocephalic and atraumatic Face and sinus: normal facial exam Mouth: oral mucosae normal Throat: posterior oropharynx normal Eyes General: Yes appearance normal, both eyes and all related structures EOM: EOM intact bilaterally Neck Neck: normal visual inspection and full ROM Lymphatic: No lymphedema Chest Chest: normal inspection of the chest Resp Effort & Inspection: normal respiratory effort Auscultation: clear to auscultation bilaterally Cardio Rate: regular rate Rhythm: regular rhythm and abnormal rhythm Heart Sounds: S1 normal, S2 normal and no murmurs GI Inspection: normal to inspection Palpation: soft and No tender Back/Spine/Pelvis Back: normal to inspection and No CVA tenderness Sacroiliac Joints: nontender Skin General: no rashes or lesions noted Neuro General: patient alert, patient awake, patient oriented x3 and no focal motor deficits Other: Evette was not evaluated due to her severe symptoms. Extrem General: normal to inspection, full ROM and no pedal edema Psych Appearance: grossly normal Course Course Course Narrative: Cardiac morning is normal. Vitals are stable. Patient responded well to Zofran IV followed by oral meclizine. She now sits up and moves about without symptoms. Orders Ordered: ED Orders 04/24/22 09:43 XR chest 1V Stat 04/24/22 09:53 EKG-12 Lead Stat 04/24/22 11:22 Complete Blood Count AUTO DIFF Stat Comprehensive Metabolic Panel Stat Lipase Stat Magnesium Stat Partial Thromboplastin Time Stat Prothrombin Time INR Stat Troponin & CK Cardiac Panel Stat Sodium Chloride (Normal Saline 0.9%) 1,000 mls @ 150 mls/hr IV CONT CHAPITO Last Admin: 04/24/22 11:15 Dose: 150 mls/hr Documented By: HUEY Discontinued Medications Meclizine HCl (Meclizine Hcl 12.5 Mg Tablet) 25 mg PO NOW ONE Stop: 04/24/22 10:22 Last Admin: 04/24/22 11:15 Dose: 25 mg Documented By: HUEY Ondansetron HCl (Ondansetron 4 Mg/2 Ml Inj) 4 mg IV NOW ONE Stop: 04/24/22 10: Last Admin: 04/24/22 11:15 Dose: 4 mg Documented By: CTS Vital Signs Vital signs: Vital Signs - 8 hr 04/24/22 11:16 04/24/22 09:42 04/24/22 09:43 Temperature 98.4 F Pulse Rate 63 74 74 Respiratory Rate 16 Blood Pressure 171/85 H Pulse Oximetry 97 99 99 Oxygen Delivery Method Room Air 04/24/22 09:43 04/24/22 10:00 04/24/22 10:01 Temperature Pulse Rate 65 Respiratory Rate 28 H Blood Pressure 193/93 H 156/78 H Pulse Oximetry 99 Oxygen Delivery Method 04/24/22 10:01 04/24/22 10:30 04/24/22 10:31 Temperature Pulse Rate 66 66 73 Respiratory Rate 27 H 29 H 22 Blood Pressure Pulse Oximetry 99 99 98 Oxygen Delivery Method 04/24/22 10:31 04/24/22 11:00 04/24/22 11:00 Temperature Pulse Rate 64 Respiratory Rate 18 Blood Pressure 160/84 H 158/80 H Pulse Oximetry 94 Oxygen Delivery Method 04/24/22 11:12 04/24/22 11:12 04/24/22 11:30 Temperature Pulse Rate 62 Respiratory Rate 33 H Blood Pressure 171/85 H 181/87 H Pulse Oximetry 98 Oxygen Delivery Method 04/24/22 11:30 04/24/22 12:00 04/24/22 12:00 Temperature Pulse Rate 58 L 60 Respiratory Rate 24 22 Blood Pressure 181/86 H Pulse Oximetry 100 97 Oxygen Delivery Method 04/24/22 12:30 04/24/22 12:31 04/24/22 12:31 Temperature Pulse Rate 67 66 Respiratory Rate 32 H 35 H Blood Pressure 169/81 H Pulse Oximetry 99 99 Oxygen Delivery Method 04/24/22 13:00 04/24/22 13:00 04/24/22 13:30 Temperature Pulse Rate 65 Respiratory Rate 22 Blood Pressure 186/87 H 196/128 H Pulse Oximetry 99 Oxygen Delivery Method 04/24/22 13:30 Temperature Pulse Rate 72 Respiratory Rate 29 H Blood Pressure Pulse Oximetry 99 Oxygen Delivery Method MDM - Dizziness Lab Data Result diagrams: 04/24/22 11:22 04/24/22 11:22 Labs: Lab Results 04/24/22 04/24/22 04/24/22 Range/Units 11:22 11:22 11:22 WBC 10.8 (4.5-11.0) X10^3/uL RBC 4.76 (4.0-5.2) X10^6/uL Hgb 13.7 (12.0-16.0) g/dL Hct 41.5 (36-46) % MCV 87.2 (80-100) fL MCH 28.8 (26-34) PG MCHC 33.0 (30-36) % RDW 14.6 (11.6-14.8) % Plt Count 267 (150-400) X10^3/uL Neut % (Auto) 83.5 H (50-75) % Lymph % (Auto) 11.6 L (25-40) % Chaves % (Auto) 3.7 (3-14) % Eos % (Auto) 0.7 L (2-4) % Baso % (Auto) 0.5 (0-2) % Neut # (Auto) 9000 H (2369-6563) /uL Lymph # (Auto) 1300 (6803-9705) /uL Chaves # (Auto) 400 (0-900) /uL Eos # (Auto) 100 (0-450) /uL Baso # (Auto) 100 (0-100) /uL PT 11.5 (10.1-12.7) SECONDS INR 1.0 (0.9-1.3) APTT 28 (26-36) SECONDS Sodium 141 (137-145) mmol/L Potassium 4.0 (3.4-5.1) mmol/L Chloride 106 (98-107) mmol/L Carbon Dioxide 26 (22-32) mmol/L BUN 11 (7-17) mg/dL Creatinine 0.64 (0.52-1.04) mg/dL Estimated GFR > 60 (>60) mL/min BUN/Creatinine Ratio 17.2 (6-22) Glucose 112 H (80-110) mg/dL Calcium 9.1 (8.4-10.2) mg/dL Magnesium 1.9 (1.6-2.3) mg/dL Total Bilirubin 1.5 H (0.2-1.3) mg/dL AST 29 (14-36) IU/L ALT 25 (<35) IU/L Alkaline Phosphatase 121 (38-126) U/L Total Creatine Kinase 35 (30-135) U/L CK-MB (CK-2) TNP CK-MB (CK-2) Rel Index TNP Troponin I < 0.012 (0.01-0.034) ng/mL Total Protein 7.7 (6.3-8.2) g/dL Albumin 4.0 (3.5-5.0) g/dL Globulin 3.7 (1.7-4.1) g/dL Albumin/Globulin Ratio 1.1 (1.0-2.8) Lipase 43 (23-300) U/L Imaging Data Chest x-ray: Radiologist's Impression: No acute process. ECG Data Attestation: I personally reviewed and interpreted this ECG as follows: (Normal sinus rhythm rate 66 beats per minute. Poor R-wave progression to the anterior leads. Old inferior NM. normal intervals. No ectopy. No acute ST elevation.) Discharge Plan Departure Patient Disposition: Home Clinical Impression: Vertigo Instructions: DI for Vertigo Activity Restrictions/Additional Instructions: Meclizine every 6 hours as needed for dizziness. Take Zofran prior to taking the meclizine, to help keep the meclizine down. Follow-up with ENT and physical therapy as planned by her PCM. Return here as needed. Prescriptions: No Action lisinopril 20 mg tablet 40 mg PO DAILY escitalopram oxalate [Lexapro] 10 mg tablet 10 mg PO DAILY Label Comments: Take 1 tablet by mouth once a day atenolol 100 mg tablet 100 mg PO DAILY ondansetron 4 mg tablet,disintegrating 4 mg PO Q8H PRN (Reason: nausea and vomiting) Qty: 20 0RF meclizine 25 mg tablet 25 mg PO QID PRN (Reason: dizziness) Qty: 20 0RF amlodipine [Norvasc] 5 mg tablet 5 mg PO DAILY Lifevantage-Collagen bottle 1 vial PO DAILY Lifevantage-Nrf2 tablet 1 tab PO DAILY Referrals: Carlin Salguero MD [Primary Care Provider] -
[2022-04-24] MEDS: ONDANSETRON 4 MG/2 ML INJ IV (11:15)
[2022-04-24] MEDS: SODIUM CHLORIDE 0.9% 1,000 ML 150 ML IV (11:15)
[2022-04-24] MEDS: MECLIZINE HCL 12.5 MG TABLET 25 MG PO (11:15)
[2022-04-24 11:46] LABS: Add Manual Diff / Slide Review NO; Basophils Absolute Auto 100 /uL (0-100); Basophils Percent Auto 0.5 % (0-2); Eosinophils Absolute Auto 100 /uL (0-450); Eosinophils Percent Auto 0.7 % (2-4); Hematocrit 41.5 % (36-46); Hemoglobin 13.7 g/dL (12.0-16.0); Lymphocytes Absolute Auto 1300 /uL (1100-4500); Lymphocytes Percent Auto 11.6 % (25-40); Mean Corpuscular Hemoglobin 28.8 PG (26-34); Mean Corpuscular Volume 87.2 fL (80-100); Monocytes Absolute Auto 400 /uL (0-900); Monocytes Percent Auto 3.7 % (3-14); Neutrophils Absolute Auto 9000 /uL (1500-7000); Neutrophils Percent Auto 83.5 % (50-75); Platelet Count 267 X10^3/uL (150-400); Prothrombin Time 11.5 SECONDS (10.1-12.7); Red Blood Cell Count 4.76 X10^6/uL (4.0-5.2); Red Cell Distribution Width 14.6 % (11.6-14.8); White Blood Cell Count 10.8 X10^3/uL (4.5-11.0)
[2022-04-24 11:49] LABS: PTT Partial Thromboplastin Tim 28 SECONDS (26-36)
[2022-04-24 11:53] LABS: Alanine Aminotransferase 25 IU/L (<35); Albumin Globulin Ratio 1.1 (1.0-2.8); Alkaline Phosphatase 121 U/L (38-126); Aspartate Aminotransferase 29 IU/L (14-36); BUN Creatinine Ratio 17.2 (6-22); Bilirubin Total 1.5 mg/dL (0.2-1.3); Blood Urea Nitrogen 11 mg/dL (7-17); Calcium 9.1 mg/dL (8.4-10.2); Carbon Dioxide 26 mmol/L (22-32); Chloride 106 mmol/L (98-107); Creatine Kinase 35 U/L (30-135); Estimated Glomerular Filt Rate > 60 mL/min (>60); Globulin 3.7 g/dL (1.7-4.1); Glucose 112 mg/dL (80-110); HEMOLYSIS 31 (0-50); Lipase 43 U/L (23-300); Magnesium 1.9 mg/dL (1.6-2.3); Sodium 141 mmol/L (137-145); Total Protein 7.7 g/dL (6.3-8.2)
[2022-04-24 12:03] LABS: Troponin I < 0.012 ng/mL (0.01-0.034)
--- NOTE | 2022-04-24 12:40 | PC.NURSE ---
1110: Arrived in pt room first interaction with pt. AAOx3. resting in bed without issue and attached to cardiac monitoring. pt already seen by Dr Franklin and orders in place. Labs drawn from existing prehospital IV. states acute on chronic dizziness and vomited her home meclazine with EMS. Medicated with zofran, fluids, and another dose of meclazine. Nausea controlled. Pt with recent head CT and MRI. denies CP SOB. NAD.
== END 2022-04-24 15:15 | disposition home or self-care (01) ==
PROVIDERS: Emergency Provider Emergency Medicine; PCP Family Medicine
DX: R42 Dizziness and giddiness (principal); R07.9 Chest pain, unspecified; I25.2 Old myocardial infarction
CPT/HCPCS: 36415; 71045; 80053; 82550; 83690; 83735; 84484; 85025; 85610; 85730; 93005; 96361; 96374; 99284; J2405

== ENCOUNTER → 2022-07-29 12:12 | Outpatient (CLI) | payer OTHER, SELFPAY ==
[2022-03-25 18:23] VITALS: BMI 38.9
--- NOTE | 2022-07-29 | DI.MG.S_ITS ---
BILATERAL DIGITAL SCREENING MAMMOGRAM 3D/2D WITH CAD: 07/29/2022 CLINICAL: Routine screening. Comparison is made to exams dated: 02/11/2017 mammogram, 02/13/2018 mammogram - outside location, and 07/02/2005 mammogram - [facility]. There are scattered areas of fibroglandular density in both breasts (category b / 25%-50% glandular tissue). Current study was also evaluated with a Computer Aided Detection (CAD) system. There is a possible developing irregular asymmetry in the left breast anterior depth superior region seen on the mediolateral oblique view only. No other significant masses, calcifications, or other findings are seen in either breast. IMPRESSION: INCOMPLETE: NEEDS ADDITIONAL IMAGING EVALUATION The possible developing irregular asymmetry in the left breast is indeterminate. Additional views with possible ultrasound are recommended. Based on the Tyrer Cuzick model (a risk assessment model) the patient's lifetime risk is 3.9% and her 10 year risk is 2.7%. According to the ACR, ACS, and NCCN guidelines, an annual breast MRI exam along with mammogram is recommended if the patient's lifetime risk is 20% or greater. This exam was interpreted at Station ID: [id number]. NOTE: For mammograms, a report in lay terms will be sent to the patient. Approximately 15% of breast malignancies will not be visualized mammographically. In the management of a palpable breast mass, a negative mammogram must not discourage biopsy of a clinically suspicious lesion. Electronically Signed By: Jumana polo/mery:07/29/2022 15:47:05 letter sent: Additional Imaging Needed ACR BI-RADS Category 0: Incomplete [id number]
== END ==
PROVIDERS: PCP Family Medicine; Referring Provider Family Medicine; Visit Provider Family Medicine
DX: Z78.0 Asymptomatic menopausal state (principal); Z12.31 Encounter for screening mammogram for malignant neoplasm of breast; Z13.820 Encounter for screening for osteoporosis; M85.851 Other specified disorders of bone density and structure, right thigh
CPT/HCPCS: 77063; 77067; 77080

== ENCOUNTER → 2022-08-02 06:47 | Outpatient (CLI) | payer OTHER, SELFPAY ==
[2022-03-25 18:23] VITALS: BMI 38.9
--- NOTE | 2022-08-02 | DI.US.S_ITS ---
PROCEDURE: US THYROID INDICATIONS: NONTOXIC GOITER, UNSPECIFIED TECHNIQUE: Real-time scanning was performed of the thyroid gland, with image documentation. COMPARISON: None. FINDINGS: Right: Thyroid lobe measures 4.4 x 1.8 x 2.0 cm, and is homogeneous in echotexture. Left: Thyroid lobe measures 4.3 x 1.1 x 1.8 cm, and is homogenous in echotexture. Isthmus: 4 mm thick. Nodule number: 1 Location: Right superior Size: 1.4 x 1.0 x 1.5 cm. Composition: Solid Echogenicity: Hypoechoic Shape: wider than tall. Margins: Smooth Echogenic foci: Non Total points: 4 ACR TI-RADS category: 4 Nodule number: 2 Location: Right inferior Size: 1.3 x 0.8 x 1.1 cm. Composition: Solid Echogenicity: Hypoechoic Shape: wider than tall. Margins: Smooth Echogenic foci: None Total points: 4 ACR TI-RADS category: 4 Nodule number: 3 Location: Left inferior Size: 0.6 x 0.5 x 0.5 cm. Composition: cystic Echogenicity: Anechoic Shape: wider than tall. Margins: Smooth Echogenic foci: None Total points: 0 ACR TI-RADS category: 1 IMPRESSION: Lesions 1 and 2 are considered category 4. Secondary to size, lesion 2 is recommended interval follow-up to document stability of 1, 2, 3 and 5 years. Lesion 1 is borderline size for FNA with a greatest dimension of 1.5 cm. FNA versus follow-up may be obtained based on clinical factors. Lesion 3 is considered benign. No additional follow-up is recommended. ACR TI-RADS definitions and recommendations: TI-RADS 1 (benign): 0 points. FNA not needed. TI-RADS 2 (not suspicious): 2 points. FNA not needed. TI-RADS 3 (mildly suspicious): 3 points. * FNA if 2.5 cm or larger, follow up if 1.5 cm or larger (at 1, 3, and 5 years). TI-RADS 4 (moderately suspicious): 4-6 points. * FNA if 1.5 cm or larger, follow up if 1 cm or larger (at 1, 2, 3, and 5 years). TI-RADS 5 (highly suspicious): 7 points or more. * FNA if 1 cm or larger, follow up if 0.5 cm or larger (every year for 5 years). Dictated by: Delphine Schafer M.D. on 08/02/2022 at 12:34 Approved by: Delphine Schafer M.D. on 08/02/2022 at 12:39
== END ==
PROVIDERS: PCP Family Medicine; Referring Provider Otolaryngology; Visit Provider Otolaryngology
DX: E04.2 Nontoxic multinodular goiter (principal)
CPT/HCPCS: 76536

== ENCOUNTER → 2023-08-23 16:25 | Outpatient (CLI) | payer OTHER, SELFPAY ==
[2023-08-23 15:59] VITALS: BMI 38.9
== END ==
PROVIDERS: PCP Family Medicine; Visit Provider Physician Assistant
DX: R30.9 Painful micturition, unspecified (principal)
CPT/HCPCS: 87077; 87086; 87186

== ENCOUNTER → 2024-09-28 10:50 | Outpatient (CLI) | payer OTHER, SELFPAY ==
[2023-08-23 15:59] VITALS: BMI 38.9
== END ==
PROVIDERS: PCP Family Medicine; Visit Provider Physician Assistant
DX: R30.0 Dysuria (principal)
CPT/HCPCS: 87077; 87086; 87186

== ENCOUNTER → 2024-11-02 11:01 | Outpatient (CLI) | payer OTHER, SELFPAY ==
[2023-08-23 15:59] VITALS: BMI 38.9
== END ==
LOC: LAB 11:01
PROVIDERS: PCP Family Medicine; Visit Provider Nurse Practitioner Family
DX: R30.0 Dysuria (principal)
CPT/HCPCS: 87077; 87086; 87186